=== PATIENT | male | born 1950 | race Caucasian/White ===

== ENCOUNTER 2023-08-04 13:48 | Emergency (ER) | payer MEDICARE, OTHER, SELFPAY ==
[2023-08-04 13:50] VITALS: BP 126/70
--- NOTE | 2023-08-04 14:38 | ED.GENMED ---
History of Present Illness
General
Chief Complaint: Musculo-Skeletal Complaint
Source: patient
Exam Limitations: none
Time Seen by Provider: 08/04/23 14:11
Travel History
Have you had any contact with someone who has COVID-19?: No
Do you have any symptoms of coronavirus? Fever > 100 degrees, chills, cough, shortness of breath, sore throat, loss of taste or smell, muscle aches, or headache?: No
History of Present Illness
History of Present Illness:
See MDM
Past History
Past History
ED Past Medical History: Asthma, CAD, HTN, NIDDM and Other (Diabetic neuropathy)
ED Past Surgical History: Cardiac
Social History
Tobacco: Non-smoker
Alcohol: None
Drug: None
Personal: Single
Living: alone
Employment: Retired
Family History
Family History: Other (Noncontributory)
Phy Exam
Physical Exam
Physical Exam:
See MDM
Course
Orders/Labs/Results
Orders:
Orders
08/04/23 13:52
Shoulder, Right, Trauma [CR Shoulder, Trauma - Right] Urgent
Comment:
Reason For Exam: fell and landed on right shoulder yesterday
08/04/23 14:37
Sling Right-Treatment ONCE
HYDROmorphone [Dilaudid] 1 mg IM NOW STA
Vital Signs
Initial and Last Documented VS:
Initial Vital Signs
Temp Pulse Resp BP Pulse Ox
98.0 F 94 16 126/70 96
08/04/23 13:50 08/04/23 13:50 08/04/23 13:50 08/04/23 13:50 08/04/23 13:50
Last Documented Vital Signs
Temp Pulse Resp BP Pulse Ox
98.0 F 94 16 126/70 96
08/04/23 13:50 08/04/23 13:50 08/04/23 13:50 08/04/23 13:50 08/04/23 13:50
MDM/Problems Addressed
Differential Diagnosis Includes:
HPI and MDM Narrative:
72-year-old male presenting with a trip and fall yesterday. Patient states he was using his walker and he tripped and fell on his right shoulder. He is right-hand dominant. He denies numbness or tingling
On exam, patient does not have any significant bony tenderness. He has tenderness with internal rotation and abduction. The extremity is otherwise neurovascularly intact past the concern for rotator cuff injury. Will place in sling discussed
importance of follow-up with orthopedics to discuss MRI. In regards to pain medicine, patient states he has oxycodone at home
Physical exam
General: Well appearing and non-toxic
HEENT: protecting airway
Neck: appears supple
CV: No evidence of cyanosis
Resp: No accessory muscle use
Abd: Non-distended
Extremities: No deformities. Pain with right shoulder internal rotation and abduction. Distal extremity neurovascular intact. No bony tenderness
Neuro: alert
Psych: Normal affect
Skin: Intact
Problems Addressed including Acute and Chronic Conditions affecting care:
1. Rotator cuff injury
Acuity: acute
Prognosis: stable
Details: X-ray negative for fracture. Patient placed in sling. Discussed orthopedic follow-up to discuss rotator cuff injury
Updates
Differential Diagnosis (but not limited to): Rotator cuff strain, shoulder fracture, rotator cuff tear
Testing considered: MRI but discussed this should be done as an outpatient
Drug therapy (if applicable): OTC meds, please see d/c instruction regarding Rx drugs
Amount and/or Complexity of Data Reviewed
Clinical info obtained from: Patient
External data reviewed: N/A
Labs I independently reviewed (but not limited to): N/A
Radiology: X-ray independently reviewed: No shoulder fracture noted
Pulse Ox: not hypoxic
EKG independently reviewed: N/A
Medical Authorization Specialist: N/A
Critical Care: N/A
Risk of Complication:
Social Determinants of health: Good social support
Discussed with other providers: N/A
Escalation of Care includes Admit/Obs: After being observed in the Emergency Department, pt stable for discharge.
Occasional wrong word or 'sound a like' substitutions may have occurred due to the inherent limitations of voice recognition software. Read the chart carefully and recognize, using context, where substitutions have occurred.
*Critical Care Note
Total Time (30-74mins, 75-104mins- exclusive of procedures): Not Applicable
ED Attending Note
-
Portions of this chart may have been created with voice recognition software.� Occasional wrong word or��sound alike� substitutions may have occurred due to the inherent limitations of voice recognition software.
Discharge Plan
Departure
Patient Disposition: Home (Routine Discharge)
Date of Disposition: 08/04/23
Time of Disposition: 14:38
Patient with high blood pressure during this ER visit?: No
Discharge Problem:
Rotator cuff injury
Instructions: Rotator Cuff Injury (DC)
Prescriptions:
No Action
metformin 500 MG tablet
500 mg PO TID
carvedilol 6.25 MG tablet
6.25 mg PO BID
torsemide 20 MG tablet
20 mg PO DAILY
pioglitazone 45 MG tablet
45 mg PO DAILY
omeprazole 40 MG capsule,delayed release(DR/EC)
40 mg PO DAILY
amitriptyline 25 MG tablet
25 mg PO HS
glimepiride 4 MG tablet
4 mg PO DAILY
losartan 25 MG tablet
25 mg PO DAILY
rosuvastatin 20 MG tablet
20 mg PO HS
gabapentin 300 mg capsule
300 mg PO TID
albuterol sulfate 90 mcg/actuation Hfa Aerosol Inhaler
1 inh INHALATION PRN PRN (Reason: SOB)
aspirin 325 mg Tablet
325 mg PO DAILY Qty: 1 0RF
Rx Instructions:
Pt normally on ASA 325 mg daily BID at home for CAD indication but such dosing not needed
Once done with 4 weeks of 325mg to go on Low dose ASA
docusate sodium 100 mg Capsule
100 mg PO BID Qty: 1 0RF
oxycodone 5 mg Tablet
5 mg PO Q4HPRN PRN (Reason: moderate pain) Qty: 12 0RF
acetaminophen 325 mg Tablet
650 mg PO Q4HPRN PRN (Reason: headache, temp >101F) Qty: 1 0RF
insulin glargine [Lantus Solostar U-100 Insulin] 300 UNITS/3 ML insulin pen
16 unit SC HS Qty: 0 0RF
Rx Instructions:
Dose increased on this admission
Referrals:
Carlos Wiggins MD [Active] -
Activity Restrictions/Additional Instructions:
As we discussed, the x-ray was negative for fractures. Given the pain with certain arm movements, I am concerned about a rotator cuff injury. Please call the orthopedist for first available appointment and please return for worsening symptoms.
Interventions
Interventions:
*ED COVID-19 Vaccine History Last Done: 08/04/23 13:50
[2023-08-04] MEDS: DILAUDID 1 MG IM (14:48)
== END 2023-08-04 14:55 | disposition home or self-care (01) ==
LOC: EMR 13:48
PROVIDERS: EMERGENCY PHYSICIAN Student in an Organized Health Care Education/Training Program; FAMILY PHYSICIAN Family Medicine
DX: S46.001A Unspecified injury of muscle(s) and tendon(s) of the rotator cuff of right shoulder, initial encounter (principal); W01.0XXA Fall on same level from slipping, tripping and stumbling without subsequent striking against object, initial encounter
CPT/HCPCS: 99284; 96372; 73030

== ENCOUNTER → 2023-11-01 06:43 | Outpatient (REF) | payer MEDICARE, OTHER, SELFPAY | LOC: MRI 06:43 | PROVIDERS: ATTENDING PHYSICIAN Specialist; FAMILY PHYSICIAN Family Medicine | DX: M75.41 Impingement syndrome of right shoulder (principal) | CPT/HCPCS: 73221 ==

== ENCOUNTER 2023-12-15 21:24 | Inpatient (IN) | payer MEDICARE, OTHER, SELFPAY ==
[2023-12-15 19:09] VITALS: BP 144/68
[2023-12-15 19:17] VITALS: BP 144/68
--- NOTE | 2023-12-15 19:17 | ED.MUSCINJ ---
HPI-Injury
<Dmitri Garcia DO - Last Filed: 12/15/23 22:10>
General
Chief Complaint: Musculo-Skeletal Complaint
Time Seen by Provider: 12/15/23 19:05
<DEEPA Rodriguez - Last Filed: 12/15/23 21:44>
General
Source: patient
Exam Limitations: none
History of Present Illness-Injury
Is this injury a work related problem?: No
Is pt an associate of [facility]?: No
Initial Injury comments:
This is a 73 year old male that comes in by ambulance with c/o fall. States that he just had right shoulder surgery yesterday by Dr. Wiggins. States that today he was walking down the neri with his walker and the Walker and him went down. States that
he did not hit his head or have any LOC. States that he has pain in the right lower leg. States that he is always SOB with walking and he has some dizziness. Denies any fever, chills, chest pain, abd pain, nausea, vomiting, diarrhea, headache,
urinary burning.
Past History
<DEEPA Rodriguez - Last Filed: 12/15/23 21:44>
Past History
ED Past Medical History: Asthma, CAD, CHF, HTN, Hypercholesterolemia, NIDDM, [place] and Other (Diabetic neuropathy, back and neck pain, Renal calculus)
ED Past Surgical History: Cardiac (CABG), Orthopedic (Right knee meniscus repair, Right ankle surgery, Right shoulder rotator cuff repair) and Other (Cataracts)
Social History
Tobacco: Non-smoker
Alcohol: None
Drug: None
Personal: Single
Living: alone
Employment: Retired
Family History
Family History: Other (Noncontributory)
Review of Systems
<DEEPA Rodriguez - Last Filed: 12/15/23 21:44>
Review of Systems
All Other Systems: ROS reviewed and negative except as documented in HPI and ROS
Constitutional: Reports no symptoms; Denies fever or chills
EENT: Reports no symptoms
Respiratory: Reports trouble breathing (Always with walking); Denies cough
Cardiac: Reports no symptoms; Denies chest pain
ABD/GI: Denies abdominal pain, nausea, vomiting or diarrhea
: Reports no symptoms; Denies dysuria, frequency or urgency
Musculoskeletal: Reports other (Right lower leg pain)
Skin: Reports no symptoms
Neurological: Reports dizzy (occasionally); Denies headache
Psychiatric: Reports no symptoms
Musculoskeletal Injury Exam
<DEEPA Rodriguez - Last Filed: 12/15/23 21:44>
Musculoskeletal Injury Exam
Right Lower Leg:
Pain with Movement?: Moderate
Tender to palpation?: Mild
Soft tissue swelling?: None
External deformity and angulation?: Moderate
Joint effusion?: None
Contusion?: None
Hematoma-local bleeding into tissue?: None
Strain- Sprain- Tear (Connective tissue injury)?: None
Crepitus with movement?: No
Joint instability?: No
Malalignment/deformity?: Yes
Range of motion: Limited
Distal skin color and temperature: normal-warm & good color
Capillary Refill: normal
Normal distal neurovascular exam?: Yes
Phy Exam
<DEEPA Rodriguez - Last Filed: 12/15/23 21:44>
General Physical Exam
General Presentation: no apparent distress
General age: appears stated age
General Skin: warm and dry
General Habitus: elderly
General Mental: alert
General Hydration: appears well hydrated
ENT Exam
ENT Exam: TM's normal, pharynx normal and neck supple
Eye Exam
Eye Exam: EOMI
Cardiovascular Exam
Cardiovascular Exam: regular rate/rhythm and normal peripheral pulses
Pulmonary Exam
Pulmonary Exam: lungs clear, no respiratory distress, no rales, chest non tender, no crackles, no rhonchi, no wheezing and no cough
Gastrointestinal Exam
Gastrointestinal Exam: normal bowel sounds, non tender, soft, no organomegaly, no pulsatile mass and non distended
Musculoskeletal Exam
Musculoskeletal Exam: no edema and other (Deformity right lower leg with external rotation)
Skin Exam
Skin Exam: normal color, warm/dry, no petechia and other (abrasion at the base of the naval)
Psychiatric Exam
Psychiatric Exam: normal mood/affect
Injury Course
Gialt;Dmitri Garcia, DO - Last Filed: 12/15/23 22:10>
Orders/Labs/Results
Orders:
Orders
12/15/23 19:16
Ankle, Right 3 view CR [CR Ankle - Right Min 3 Views *] Urgent
Comment:
Reason For Exam: Fall,
CR Leg Tibia/fibula Right 2 Vw Urgent
Comment:
Reason For Exam: Fall,
12/15/23 19:36
Complete Blood Count/With Diff Urgent
Comprehensive Metabolic Panel Urgent
12/15/23 20:36
HYDROmorphone [Dilaudid] 1 mg IV NOW STA
12/15/23 21:17
Admit/Transfer Patient As Directed
Co-Sign Provider:
Level of Care: Inpatient admission
Assign to:: Medical/Surgical
Physician / Group: carina
Diagnosis: tibida/fibula fracture
Reason for Hospitalization: tibida/fibula fracture
Expected length of stay greater than two midnights?: Yes
ELOS- Estimated Length of Stay in days: 2
I certify the patient meets the requirements for IP care: Yes
Code Status As Directed
Resuscitation Status: Full Code
12/15/23 22:00
Flush (0.9% Sodium Chloride) [Flush (Nss)] See Dose Instructions IV PER PROTOCOL
Abnormal Lab Results
12/15/23
19:36
RBC 3.74 L 10^6/uL
(4.70-6.10)
Hgb 11.6 L g/dL
(13.0-18.0)
Hct 34.2 L %
(39.0-52.0)
MPV 11.2 H fL
(7.4-10.4)
Abs Immat Gran (auto) 0.1 H 10^3/uL
(0-0.05)
Absolute Neuts (auto) 6.6 H 10^3/uL
(1.4-6.5)
Absolute Lymphs (auto) 1.1 L 10^3/uL
(1.2-3.4)
Absolute Monos (auto) 1.3 H 10^3/uL
(0.1-0.6)
Immature Gran % 1.1 H %
(0-0.5)
Lymphocytes % 12.4 L %
(20.5-51.1)
Monocytes % 13.8 H %
(1.7-9.3)
Glucose 248 H mg/dl
(70-99)
Total Protein 6.1 L g/dl
(6.3-8.2)
12/15/23 19:36
12/15/23 19:36
Gialt;DEEPA Rodriguez - Last Filed: 12/15/23 21:44>
Orders/Labs/Results
Orders:
Orders
12/15/23 19:16
Ankle, Right 3 view CR [CR Ankle - Right Min 3 Views *] Urgent
Comment:
Reason For Exam: Fall,
CR Leg Tibia/fibula Right 2 Vw Urgent
Comment:
Reason For Exam: Fall,
12/15/23 19:36
Complete Blood Count/With Diff Urgent
Comprehensive Metabolic Panel Urgent
12/15/23 20:36
HYDROmorphone [Dilaudid] 1 mg IV NOW STA
12/15/23 21:17
Admit/Transfer Patient As Directed
Co-Sign Provider:
Level of Care: Inpatient admission
Assign to:: Medical/Surgical
Physician / Group: carina
Diagnosis: tibida/fibula fracture
Reason for Hospitalization: tibida/fibula fracture
Expected length of stay greater than two midnights?: Yes
ELOS- Estimated Length of Stay in days: 2
I certify the patient meets the requirements for IP care: Yes
Code Status As Directed
Resuscitation Status: Full Code
12/15/23 22:00
Flush (0.9% Sodium Chloride) [Flush (Nss)] See Dose Instructions IV PER PROTOCOL
Abnormal Lab Results
12/15/23
19:36
RBC 3.74 L 10^6/uL
(4.70-6.10)
Hgb 11.6 L g/dL
(13.0-18.0)
Hct 34.2 L %
(39.0-52.0)
MPV 11.2 H fL
(7.4-10.4)
Abs Immat Gran (auto) 0.1 H 10^3/uL
(0-0.05)
Absolute Neuts (auto) 6.6 H 10^3/uL
(1.4-6.5)
Absolute Lymphs (auto) 1.1 L 10^3/uL
(1.2-3.4)
Absolute Monos (auto) 1.3 H 10^3/uL
(0.1-0.6)
Immature Gran % 1.1 H %
(0-0.5)
Lymphocytes % 12.4 L %
(20.5-51.1)
Monocytes % 13.8 H %
(1.7-9.3)
Glucose 248 H mg/dl
(70-99)
Total Protein 6.1 L g/dl
(6.3-8.2)
12/15/23 19:36
12/15/23 19:36
H/H slightly low Glucose nonfasting. Total protein slightly low.
Procedures
<Dmitri Garcia DO - Last Filed: 12/15/23 22:10>
Splinting/Sling Placement
Right Leg:
Procedure completed by: Dr. Garcia
Pre-splint extermity exam: neurovascular intact
Type of splint: sugar-tong and posterior long leg
Splint material: fiberglass
Normal distal neurovascular exam?: Yes
<DEEPA Rodrigeuz - Last Filed: 12/15/23 21:44>
MDM/Problems Addressed
Differential Diagnosis Includes:
Deformity with fracture right lower leg,
MDM/Problems Addressed:
This is a 73 year old male that comes in with c/o right leg injury. States that he was walking down the neri with his walker to get to the laundry room and he fell. Patient is c/o right leg deformity.
Will get labs and X-ray leg and ankle.
Back into see patient. Explained that he broke both the tib and fibula. There is also a proximal fibula fracture. Will place patient in a sterup and posterior splint. Message sent to Dr. Mccullough and Hospitalist. Will admit.
Right leg splinted with posterior and stirrup.
Chronic conditions affecting care: DM and CAD
Acute Exacerbation and/or Progression of Chronic Illness:
NA
<DEEPA Rodriguez - Last Filed: 12/15/23 21:44>
*Radiology
Radiology exam reviewed: preliminary read by ED provider (Tib/Fib- Fracture of the distal tib/fib and proximal fibula. ), radiology read reviewed (tib/Fib-There is an acute comminuted nondisplaced fracture proximal fibular metaphysis. There is an
acute comminuted transverse fracture of the distal tibial diaphysis associated with 15mm lateral displacement. there is an acute oblique facture of the distal fibular diaphysis associated with 8mm ), all reviewed NAD by ED Provider (Tib/Fib con-8mm
lateral and 13mm anterior displacement. Right ankle-There is an acute comminuted transverse fracture of the distal tibial diaphysis associated with 15mm lateral displacement. There is an acute oblique fracture of the distal fibular diaphysis
associated with 8mm lateral and 13mm ) and other (Ankle cont-13mm anterior displacaement. )
*EKG
Interpreted by ED Provider?: NA
Rate: EKG- N/A
*[employer] Interpretation
Rate: [employer]- N/A
*Critical Care Note
Total Time (30-74mins, 75-104mins- exclusive of procedures): Not Applicable
ED Attending Note
<Dmitri Garcia DO - Last Filed: 12/15/23 22:10>
ED Attending Note
Patient seen and examined by attending physician: Yes
I performed the substantive portion of visit, reviewed & personally made and approve the management plan that is documented in note by myself or VIBHA.: Yes
<DEEPA Rodriguez - Last Filed: 12/15/23 21:44>
-
Portions of this chart may have been created with voice recognition software.� Occasional wrong word or��sound alike� substitutions may have occurred due to the inherent limitations of voice recognition software.
Discharge Plan
Departure
Patient Disposition: Admit
Date of Disposition: 12/15/23
Time of Disposition: 20:36
Admit to: Med/Surg
Presentation/result/management discussed w/ accepting MD/DO: Hospitalist
Patient with high blood pressure during this ER visit?: Yes
Condition: Good
Covid-19: Not Applicable
Discharge Problem:
Fracture of tibia and fibula, shaft, Fracture of fibula, proximal
Interventions
Interventions:
*Risk Screen - Suicide Last Done: 12/15/23 19:40
*General Assessment Last Done: 12/15/23 19:40
*Neglect/Abuse Screening Last Done: 12/15/23 22:07
ED- Fall Risk Assessment Last Done: 12/15/23 22:07
*ED COVID-19 Vaccine History Last Done: 12/15/23 19:40
ED-Musculoskeletal Assessment Last Done: 12/15/23 19:40
[2023-12-15 19:18] VITALS: BMI 32.1
[2023-12-15 19:44] LABS: % Basophils 0.2 % (0-2); % Eosinophils 0.2 % (0-6); % Immature Granulocytes 1.1 % (0-0.5); % Lymphocytes 12.4 % (20.5-51.1); % Monocytes 13.8 % (1.7-9.3); % Neutrophils 72.3 % (42.2-75.2); Absolute Immature Granulocytes 0.1 10^3/uL (0-0.05); Absolute Lymphocytes 1.1 10^3/uL (1.2-3.4); Absolute Monocytes 1.3 10^3/uL (0.1-0.6); Absolute Neutrophils 6.6 10^3/uL (1.4-6.5); Hematocrit 34.2 % (39.0-52.0); Hemoglobin 11.6 g/dL (13.0-18.0); Mean Corp Hgb Conc. 33.9 g/dL (33.0-37.0); Mean Corpuscular Volume 91.4 fL (80.0-94.0); Mean Platelet Volume 11.2 fL (7.4-10.4); Nucleated Red Blood Cells % 0 % (-); Platelet Count 130 10^3/uL (130-400); Red Blood Cell Count 3.74 10^6/uL (4.70-6.10); Red Cell Dist. Width 13.4 % (11.5-14.5); White Blood Cell Count 9.1 10^3/uL (4.8-10.8)
[2023-12-15 20:06] LABS: ALT (SGPT) 18 U/L (0-50); AST (SGOT) 35 U/L (17-59); Alkaline Phosphatase 68 U/L (38-126); Blood Urea Nitrogen 19 mg/dl (9-20); Carbon Dioxide 26 mmol/L (22-30); Estimated Creatinine Clearance 69 ml/min; Glucose 248 mg/dl (70-99); Total Bilirubin 0.8 mg/dl (0.2-1.3); Total Protein 6.1 g/dl (6.3-8.2); eGFR > 60.00
[2023-12-15 20:14] LABS: Chloride 103 mmol/L (98-107); Potassium 4.1 mmol/L (3.5-5.1); Sodium 136 mmol/L (135-145)
[2023-12-15 21:00] VITALS: BP 152/72
[2023-12-15] MEDS: DILAUDID 1 MG IV (21:18)
--- NOTE | 2023-12-15 21:22 | HPS.HSE ---
Family Physician
-
Family Physician: Alma Scott MD
Chief Complaint
-
fall
History of Present Illness
73-year-old male past medical history of CAD status post CABG, CHF, diabetes, hypertension, hyperlipidemia, chronic opiate dependence, presenting with fall. Patient had right shoulder surgery yesterday by Dr. Wiggins. Today he was walking down the
[place] with his walker and he fell down. He did not hit his head or have any loss of consciousness. He states that he has pain in the right lower leg.
He states that he does frequently fall and sometimes he gets dizzy but today when he fell he did not get dizzy.
Denies fevers, chills, chest pain, abdominal pain, nausea vomiting, diarrhea, headache, urinary symptoms.
He denies smoking or alcohol use.
Medical History
Past Medical History
Past Medical History: Reports Other (CAD status post CABG, CHF, diabetes, hypertension, hyperlipidemia, chronic opiate dependence)
Past Surgical History: Reports Other (Cardiac (CABG), Orthopedic (Right knee meniscus repair, Right ankle surgery, Right shoulder rotator cuff repair) and Other (Cataracts))
Social History
Tobacco: Non-smoker
Alcohol: None
Drug: None
Family History
Family History: Not pertinent
Allergies / Home Medications
Allergies reflects when Allergies were last updated in [facility].
Home Medications with original date entered in [facility]
Allergy/Medication List:
Allergies
Allergy/AdvReac Type Severity Reaction Status Date / Time
simvastatin Allergy cried for Verified 12/15/23 19:39
a week
Home Medications
amitriptyline 25 mg tablet 25 mg PO HS Mental Health/Anxiety 02/15/19
glimepiride 4 mg tablet 4 mg PO DAILY Diabetes 02/15/19
losartan 25 mg tablet 25 mg PO DAILY Blood pressure 02/15/19
metformin 500 mg tablet 500 mg PO TID Diabetes 02/15/19
omeprazole 40 mg capsule,delayed release 40 mg PO DAILY Gastrointestinal issue 02/15/19
pioglitazone 45 mg tablet 45 mg PO DAILY Diabetes 02/15/19
rosuvastatin 20 mg tablet 20 mg PO HS High cholesterol 02/15/19
torsemide 20 mg tablet 20 mg PO DAILY Heart disease/condition 02/15/19
albuterol sulfate 90 mcg/actuation aerosol inhaler 1 puff inhalation R TIDPRN PRN SOB 01/06/23
aspirin 325 mg tablet 325 mg PO DAILY #1 tab 01/14/23
Unknown Vitamins/Supplements 1 dose PO DAILY 12/15/23
xebhkjv-dmmsbslxvktqj-zrlazuzu 250 mg-250 mg-65 mg tablet (Excedrin Extra Strength) 1 tab PO BID 12/15/23
carvedilol 3.125 mg tablet 3.125 mg PO Q12H 12/15/23
gabapentin 600 mg tablet 600 mg PO TID 12/15/23
insulin glargine 100 unit/mL (3 mL) subcutaneous pen (Lantus Solostar U-100 Insulin) 12 unit SC HS 12/15/23
oxycodone-acetaminophen 5 mg-325 mg tablet 0.5 tab PO Q4HPRN PRN severe pain 12/15/23
Review of Systems
-
History Source: Patient
A 12 point ROS was completed and negative except as noted: Yes
Constitutional: Reports No Symptoms
EENT: Reports No Symptoms
Respiratory: Reports No Symptoms
Cardiac: Reports No Symptoms
Abdomen/GI: Reports No Symptoms
: Reports No Symptoms
Musculoskeletal: Reports See HPI
Skin: Reports No Symptoms
Neurological: Reports No Symptoms
Endocrine: Reports No Symptoms
Hematologic/Lymphatic: Reports No Symptoms
Psych: Reports No Symptoms
Physical Exam
Vital Signs
Vital Signs
Temp Pulse Resp BP Pulse Ox
98.7 F 103 20 144/68 94
12/15/23 19:09 12/15/23 19:09 12/15/23 19:09 12/15/23 19:17 12/15/23 19:30
Physical Exam
General: Well Developed, Well Nourished and No Apparent Distress
HEENT: NormoCephalic, Moist mucous membranes and Atraumatic
Respiratory: Clear
Cardiac: S1/S2 and Regular Rhythm; No Murmur or Rub
GI: Soft, Non Tender, Non Distended and Normal Bowel Sounds; No Organomegaly
Rectal: Deferred by Provider
Musculoskeletal: No Clubbing, No Cyanosis and No Edema
Skin: No Rash
Neuro: Nonfocal/grossly intact
Laboratory Results
-
12/15/23 19:36
12/15/23 19:36
Laboratory Results
Total Bilirubin 0.8 mg/dl (0.2-1.3) 12/15/23 19:36
AST 35 U/L (17-59) 12/15/23 19:36
ALT 18 U/L (0-50) 12/15/23 19:36
Alkaline Phosphatase 68 U/L (38-126) 12/15/23 19:36
Data Reviewed
-
Lab Data: Labs Reviewed by me
Old Records: Reviewed
Impression/Plan
-
IMPRESSION:
PLAN:
# Fracture of distal tibia/fibula and proximal fibula
-Tylenol, Dilaudid for pain
-Ortho consulted
-Posterior splint to be placed
-N.p.o. past midnight for possible surgery tomorrow
# Right shoulder surgery yesterday
History of right ankle fracture status post ORIF in September
CAD status post CABG
-Continue aspirin
History of CHF
-Continue Coreg
-Continue torsemide
Chronic normocytic anemia
-Hemoglobin stable
Essential hypertension
-Continue losartan
Type 2 diabetes
-Continue Lantus 12 units
-Hold glimepiride, pioglitazone, metformin
-Insulin sliding scale
Diabetic neuropathy
-Continue gabapentin
Hyperlipidemia
-Continue statin
Chronic opioid dependence
Anxiety/depression
-Continue amitriptyline
Full code
DVT prophylaxis�none
N.p.o. past midnight
[2023-12-15] MEDS: FLUSH (NSS) 1 FLUSH IV (21:32)
--- NOTE | 2023-12-15 23:00 | PTCARENOTE ---
Received patient via stretcher accompanied by ED PCT. Patient transferred from stretcher to bed without difficulty. Nursing assessment completed and as documented. Patient s/p right shoulder surgery with dressing to shoulder and arm in sling.
Patient RLE with hard splint and PARAMJIT bandage, able to move toes and leg on command, decreased sensation but at baseline, warm to touch, +cap refill and +PP. Oriented to room/facility, instructed use of call sun and within reach, VSS, continue with
current care plan.
[2023-12-15 23:09] LABS: Glucose - Point of Care 313 mg/dl (70-99)
[2023-12-15] MEDS: ELAVIL 25 MG PO (23:21)
[2023-12-15] MEDS: NEURONTIN 600 MG PO (23:21)
[2023-12-15] MEDS: CRESTOR 20 MG PO (23:21)
[2023-12-15] MEDS: LANTUS 0.119999999999999996 UNITS SC (23:21)
[2023-12-15] MEDS: COREG 3.125 MG PO (23:21)
[2023-12-15 23:25] VITALS: BMI 31.5
[2023-12-15 23:36] VITALS: BMI 31.5
[2023-12-15 23:53] VITALS: BP 146/77
[2023-12-16] VITALS (11 sets, daily range): BP systolic 106–159; BP diastolic 52–75; BMI 31.6
[2023-12-16 02:27] LABS: Glucose - Point of Care 352 mg/dl (70-99)
[2023-12-16] MEDS: NOVOLOG FLEXPEN 5 UNITS SC (02:54)
[2023-12-16] MEDS: TYLENOL 650 MG PO ×2 (05:04→22:12)
[2023-12-16 05:09] LABS: Glucose - Point of Care 207 mg/dl (70-99)
[2023-12-16 07:22] LABS: % Basophils 0.2 % (0-2); % Eosinophils 0.1 % (0-6); % Immature Granulocytes 0.7 % (0-0.5); % Lymphocytes 15.7 % (20.5-51.1); % Monocytes 16.2 % (1.7-9.3); % Neutrophils 67.1 % (42.2-75.2); Absolute Immature Granulocytes 0.1 10^3/uL (0-0.05); Absolute Lymphocytes 1.4 10^3/uL (1.2-3.4); Absolute Monocytes 1.4 10^3/uL (0.1-0.6); Absolute Neutrophils 5.9 10^3/uL (1.4-6.5); Mean Corp Hgb Conc. 33.3 g/dL (33.0-37.0); Mean Corpuscular Hgb 30.6 pg (27.0-31.0); Mean Corpuscular Volume 91.9 fL (80.0-94.0); Mean Platelet Volume 11.6 fL (7.4-10.4); Nucleated Red Blood Cells % 0 % (-); Platelet Count 146 10^3/uL (130-400); Red Blood Cell Count 3.59 10^6/uL (4.70-6.10); Red Cell Dist. Width 13.2 % (11.5-14.5); White Blood Cell Count 8.8 10^3/uL (4.8-10.8)
[2023-12-16 07:36] LABS: Glucose - Point of Care 180 mg/dl (70-99)
[2023-12-16 07:41] LABS: ALT (SGPT) 17 U/L (0-50); AST (SGOT) 36 U/L (17-59); Albumin 3.8 g/dl (3.5-5.0); Alkaline Phosphatase 66 U/L (38-126); Blood Urea Nitrogen 16 mg/dl (9-20); Calcium 9.3 mg/dl (8.4-10.2); Carbon Dioxide 27 mmol/L (22-30); Chloride 102 mmol/L (98-107); Estimated Creatinine Clearance 75 ml/min; Glucose 191 mg/dl (70-99); Potassium 3.7 mmol/L (3.5-5.1); Sodium 137 mmol/L (135-145); Total Bilirubin 0.9 mg/dl (0.2-1.3); Total Protein 5.8 g/dl (6.3-8.2); eGFR > 60.00
[2023-12-16] MEDS: NOVOLOG FLEXPEN-LOW RESISTANCE SC ×2 (08:09→12:28)
--- NOTE | 2023-12-16 08:15 | W.PN.UPDATE ---
Update Note
Progress Note Update
73-year-old male with fall with spiral fracture of the right tibia and proximal fibula adjacent towards distal fixation for previous ankle fracture.
Imaging was shown and reviewed with the patient. Given the unstable nature of the fracture pattern, displacement, and his baseline health and ambulatory status recommended for operative intervention
Plan for OR today for right lower extremity hardware removal, fracture reduction and intramedullary nail fixation with Dr. Mccullough
N.p.o. Antibiotics on-call to the OR. Consent obtained and placed in the chart
Order placed for tall cam boot to begin to the patient prior to surgery and bring to the operating room for placement immediately postop
Full H&P to follow
[2023-12-16] MEDS: DEMADEX PO (08:27)
[2023-12-16] MEDS: COZAAR 25 MG PO (08:32)
[2023-12-16] MEDS: PROTONIX 40 MG PO (08:32)
[2023-12-16] MEDS: COREG 3.125 MG PO ×2 (08:32→20:32)
[2023-12-16] MEDS: DILAUDID 0.5 MG IV (08:32)
[2023-12-16] MEDS: NEURONTIN 600 MG PO ×2 (08:32→22:06)
[2023-12-16 10:07] LABS: Glycohemoglobin (HgbA1c) 7.4 % (4.0-5.6)
--- NOTE | 2023-12-16 10:46 | W.PN.HOSP.TC ---
Today's Communication/Plan
-
Monitor vital signs and see plan
Pain control
Plan for the OR today
Hold full dose aspirin currently, restart postop when ok with orthopedics
PT/OT post OP per ortho
Assessment / Plan
Assessment / Plan
General: Well Developed, Well Nourished and No Apparent Distress
HEENT: NormoCephalic, Moist mucous membranes and Atraumatic
Respiratory: Clear
Cardiac: S1/S2 and Regular Rhythm; No Murmur or Rub
GI: Soft, Non Tender, Non Distended and Normal Bowel Sounds; No Organomegaly
Musculoskeletal: No Clubbing, No Cyanosis and No Edema
Neuro: Nonfocal/grossly intact
Fracture of distal tibia/fibula and proximal fibula
-Tylenol, Dilaudid for pain
-Ortho following; given unstable nature of the fracture pattern, displacement orthopedics is going to take patient to the OR 12/15 for right lower extremity hardware removal, fracture reduction and intramedullary nail fixation. post OP PT/OT per ortho
-Posterior splint to be placed
-N.p.o. past midnight for possible surgery tomorrow
EKG with sinus tach
#Recent Right shoulder surgery 12/13
History of right ankle fracture status post ORIF in September
CAD status post CABG about 13 years ago
-Continue aspirin; should ideally be on 81mg but patient has been taking full dose. Hold aspirin for now since need to go to the OR today
History of CHF
-Continue Coreg
-Continue torsemide
Chronic normocytic anemia
-Hemoglobin stable
Essential hypertension
-Continue losartan
Type 2 diabetes
A1c 7.4
-Continue Lantus 12 units
-Hold glimepiride, pioglitazone, metformin
-Insulin sliding scale
Diabetic neuropathy
-Continue gabapentin
Hyperlipidemia
-Continue statin
Chronic opioid dependence
Anxiety/depression
-Continue amitriptyline
Full code
DVT prophylaxis�none; post OP can be on ASA 325 which he takes at home
I spent a total of 52 minutes with the patient or on the floor. More than 50% of this time involved counseling and coordination of care.
Anticipated Discharge: 24 - 48 hours
Subjective/Interval History
-
Date of Service: December 16, 2023
has pain
Objective Data
-
Labs:
Laboratory Results
12/16/23
06:43
WBC 8.8
Hgb 11.0 L
Hct 33.0 L
Plt Count 146
Sodium 137
Potassium 3.7
Chloride 102
Carbon Dioxide 27
BUN 16
Creatinine 1.1
Glucose 191 H
Calcium 9.3
Total Bilirubin 0.9
AST 36
ALT 17
Alkaline Phosphatase 66
Vital Signs:
Vital Signs
Temp Pulse Resp BP Pulse Ox
97.9 F 106 16 114/83 92
12/16/23 07:40 12/16/23 07:40 12/16/23 07:40 12/16/23 08:32 12/16/23 07:40
I&O
12/15/23 12/16/23 12/17/23
06:59 06:59 06:59
Intake Total 420 / 420
Output Total 575 / 575
Balance -155 / -155
[2023-12-16 12:13] LABS: Glucose - Point of Care 172 mg/dl (70-99)
--- NOTE | 2023-12-16 13:16 | CM ---
Reviewed the chart notes and spoke with the patient at the bedside. The patient had shoulder surgery yesterday and fell injuring his right ankle. Patient anticipates going to OR today for surgical repair.
The patient resides alone in a second floor condo with 14 steps to enter. The patient has a rolling walker and shower grab bars. The patient has had [facility] in the past and been to [facility] and [facility]. Patient understand he will need SNF at
discharge. Patient requests referral be sent to [facility]. Referral to be sent once PT/OT evaluates after surgery. The [facility] CM continues to be available to patient/family and
is monitoring medical plan for needs at discharge.
Plan: Discharge to SNF once bed available. Referral to be sent to [facility] once evaluated by PT/OT. Referral started with [facility].
[2023-12-16] MEDS: NEURONTIN PO (15:31)
--- NOTE | 2023-12-16 16:37 | CON.ORTHO ---
Addendum entered and electronically signed by Roland Mccullough MD 12/16/23 21:17:
At bedside and agree with above note. 73-year-old male with history of right distal fibula fracture and syndesmotic injury treated with ORIF last year presented after a fall with periprosthetic tib-fib fracture. He is neurovascular intact
distally. Injury happened 1 day ago. I discussed the injury with the patient and discussed the surgical plan Dr. Maxwell. Shared decision was to proceed with open reduction and internal fixation of the right tibia given the comminution and degree
of displacement.
> 75 minutes was spent reviewing the clinical information, evaluating the patient, and formulating clinical plan.
Agustin Mccullough MD
Original Note:
Consultation
-
Date/Time Consultation Requested: 12/15/2023 2141
Date/Time Consultation Performed: 12/16/2023 45
Requesting Provider: Dr. Susie Muñoz
Performing Provider: TERRI Abernathy, Dr. Rayray Mccullough
Reason for Consultation: Right tibia/fibula fracture
Consultation - Orthopedics
History
73-year-old male with significant past medical history of type 2 diabetes presenting to [place] emergency room and subsequent admission after a fall and subsequent pain in the right lower extremity. He does have significant relative surgery of
the previous right ankle ORIF with Dr. Carvajal approximately 1 year ago with revision surgery [address] Maxwell for hardware failure. He also underwent arthroscopic surgery with Dr. Wiggins yesterday.
Allergies / Home Medications
Past medical history: Coronary artery disease status post CABG, congestive heart failure, type 2 diabetes, hypertension, hyperlipidemia, history of chronic opioids
Past surgical history: Cardiac CABG, right ankle ORIF and revision ankle ORIF October 2022 Dr. Maxwell/Dr. Carvajal
Arthroscopic right shoulder rotator cuff repair with Dr. Wiggins, cataracts
Medications: See list
Allergies: See list
Social history: No tobacco use, denies alcohol consumption, no illicit drug use. Community ambulator with occasional assist device at baseline
Family history: Noncontributory
12 point ROS: Negative other than described in history of present illness
Allergy/AdvReac Type Severity Reaction Status Date / Time
simvastatin Allergy cried for Verified 12/15/23 19:39
a week
�Medication �Instructions �Recorded
amitriptyline 25 mg tablet 25 mg PO HS Mental Health/Anxiety 02/15/19
glimepiride 4 mg tablet 4 mg PO DAILY Diabetes 02/15/19
losartan 25 mg tablet 25 mg PO DAILY Blood pressure 02/15/19
metformin 500 mg tablet 500 mg PO TID Diabetes 02/15/19
omeprazole 40 mg capsule,delayed 40 mg PO DAILY Gastrointestinal 02/15/19
release issue
pioglitazone 45 mg tablet 45 mg PO DAILY Diabetes 02/15/19
rosuvastatin 20 mg tablet 20 mg PO HS High cholesterol 02/15/19
torsemide 20 mg tablet 20 mg PO DAILY Heart 02/15/19
disease/condition
albuterol sulfate 90 mcg/actuation 1 puff inhalation R TIDPRN PRN SOB 01/06/23
aerosol inhaler
aspirin 325 mg tablet 325 mg PO DAILY #1 tab 01/14/23
Unknown Vitamins/Supplements 1 dose PO DAILY Supplement 12/15/23
xzmymwm-dgdllpbtldjlb-lruqeuoj 250 1 tab PO BID HEADACHE 12/15/23
mg-250 mg-65 mg tablet (Excedrin
Extra Strength)
carvedilol 3.125 mg tablet 3.125 mg PO Q12H Blood Pressure 12/15/23
gabapentin 600 mg tablet 600 mg PO TID Neurological 12/15/23
Condition
insulin glargine 100 unit/mL (3 12 unit SC HS Diabetes 12/15/23
mL) subcutaneous pen (Lantus
Solostar U-100 Insulin)
oxycodone-acetaminophen 5 mg-325 0.5 tab PO Q4HPRN PRN severe pain 12/15/23
mg tablet
Vital Signs / Lab Results
Temp Pulse Resp BP Pulse Ox
97.9 F 106 16 114/83 92
12/16/23 07:40 12/16/23 07:40 12/16/23 07:40 12/16/23 08:32 12/16/23 11:33
Focused examination of the right lower extremity shows intact splint. He demonstrates motor intact to the first toe with flexion and extension. Baseline level of neuropathy with exposed toe. He is nontender in the proximal thigh and no pain with
logroll testing.
Imaging: X-rays taken of the right tibia and fibula show a minimally displaced fracture of the proximal fibula at the neck. There is a comminuted fracture relative to his hardware in the diaphyseal region of his tibia. Acute fracture of the distal
fibular diaphysis. Intact hardware
12/16/23 06:43
12/16/23 06:43
Assessment / Plan
73-year-old male with a mechanical fall with relative PSHx of right shoulder arthroscopic surgery [address] Wiggins and previous ankle ORIF and revision surgery for failure of hardware [address] Maxwell/Dr. Carvajal with new injury
of a comminuted and displaced fracture of the tibia and fibula adjacent towards his hardware.
Imaging was shown and reviewed with the patient. With his current fracture pattern patient is recommended for operative invention. The condition/injury and respective operative and non-operative interventions were reviewed with the patient to
include the risks, benefits, rehabilitation, and prognosis for each. The treatment/operative technique, follow-up, rehabilitation, and prognosis were reviewed with the patient. Surgical risks were discussed which include but not limited to
infection, blood loss, CRPS, possible need for further surgeries, damage to local structures, and possible loss of life or limb. After thorough counseling and answering all questions, the patient wished to proceed with operative intervention of
right lower extremity removal of hardware and intramedullary nail fixation with Dr. Mccullough. The patient verified understanding of the treatment plan and all questions were answered to satisfaction.
Plan [address] Mccullough for removal of hardware and intramedullary nail fixation.
N.p.o.
Antibiotics on-call to the OR
Consent obtained and placed in the chart
[2023-12-16 19:01] LABS: Glucose - Point of Care 217 mg/dl (70-99)
[2023-12-16] MEDS: NORMOSOL-R 1000 IV (19:16)
[2023-12-16] MEDS: NOVOLOG vial 1 UNITS SC (19:21)
[2023-12-16] MEDS: DILAUDID 0.25 MG IV (19:45)
--- NOTE | 2023-12-16 20:20 | PTCARENOTE ---
Pt. arriving from PACU around 2019, surgical wounds assessed with offgoing PACU nurse at bedside. Pt. A&Ox3, drowsy but arousable to verbal stimuli, even and unlabored breathing on RA, in NAD, VSS, and denies pain at present. Pt. oriented to room,
call sun within reach, bed locked and in lowest position, side rails in place. Pt. set up to eat dinner at this time.
[2023-12-16 20:23] LABS: Glucose - Point of Care 246 mg/dl (70-99)
[2023-12-16] MEDS: COLACE 100 MG PO (20:32)
[2023-12-16] MEDS: NOVOLOG FLEXPEN-LOW RESISTANCE 2 UNITS SC (20:33)
--- NOTE | 2023-12-16 21:15 | OR.RPT ---
Operative Report
Operative Report
Orthopedic Surgery Operative Note
Date of Operation: 12/16/2023
Preoperative Diagnosis: Right displaced tibia shaft fracture; history of right distal fibula ORIF and syndesmosis ORIF
Postoperative Diagnosis: Same
Operation Performed: Right tibia shaft fracture open reduction and internal fixation with intramedullary nail; removal of hardware
Surgeon: Roland Mccullough MD
Assistants: Santo Maddox PA-C who helped with retraction and positioning
Anesthesia: General
Complications: None
Estimated Blood Loss: 100mL
Implants:
[place] T2 tibial nail, 360mm x 10mm
5.0mm proximal and distal interlocking screws
Tourniquet Time: NA
Indications for Procedure:
73M who presented to the ED with right calf pain status post fall. Xrays showed a displaced tibia shaft fracture and proximal fibula fracture. He had history of right distal fibula fracture ORIF with Dr. Maxwell for syndesmotic injury. We reviewed
the natural history of the problem and discussed the risks, benefits and alternatives of surgical and nonoperative treatment options. Shared decision was to proceed with surgical treatment. The patient understood the risks including, but not limited
to, bleeding, infection, failure to relieve pain, more pain than preop, damage to blood vessels and nerves, need for reoperation, mechanical failure of the implants, wound healing problems, stiffness, instability, blood clot, pulmonary embolism,
myocardial infarction, pneumonia, arrhythmia, CVA and . The patient accepted these risks and wished to proceed with surgery. All questions were answered and informed consent was obtained.
Procedure in General:
The patient was identified in the preoperative holding area. The right limb was identified as the operative site and marked for safety. The patient was brought to the operating room and transferred to the operative table. General anesthesia was
performed. Ancef was administered prior to incision. All bony prominences were well padded. A bump was placed under the ipsilateral hip. The operative limb was prepped and draped in the usual sterile fashion.
The prior distal fibula incision was identified. Fluroscopy was used to identify the proximal syndesmotic screws. The skin was incised down to bone in full thickness fashion. Care was made not to injure the SPN. The two proximal interlocking screws
were identified and removed easily.
The proximal knee was assessed, and the incision was marked 2 fingerbreadths above the superior aspect of the patella about 4 cm in length. The skin was incised and dissection was carried down to the quadriceps tendon. This was split in line with
its fibers. The intra-articular elastic guide was inserted into the joint with care to subluxate the patella medially or laterally to avoid iatrogenic injury. A guidepin was used to find the starting point on the medial aspect of the lateral
tibial eminence in line with the lateral cortex as well as the anterior cortex. Fluoroscopy was used to ensure no intra-articular penetration or disruption of the tibial tubercle. Guidewire was advanced and the opening reamer was used over the
wire. Attention was turned to the fracture. With a combination of traction and manipulation, the fracture was anatomically reduced. Two of the proximal fibula plate screws were removed as these were blocking reduction. With the fracture reduced,
ball-tipped guidewire was passed to the center of the distal tibia. The tibia was sequentially reamed up to a 11mm which had good cortical chatter. A 10mm diameter nail with 360 mm length was selected. This was assembled the back table and passed
down the diaphysis. Once in place, proximal interlocking screws were placed medial to lateral through the jig. Distal interlocking screws were placed medial to lateral using perfect minto technique. Final fluoroscopy shots confirmed anatomic
reduction and appropriate screw length and hardware position.
The wound was irrigated copiously with 3L saline. The deep tissue was closed with 0 vicryl about the knee. Skin was closed with running 2-0 vicryl and 3-0 nylon. The interlocking screw sites were closed with 2-0 vicryl and 3-0 nylon in mattress
fashion. Sterile dressings were applied.
The patient awoke from anesthesia without any difficulties. The sponge and instrument counts were correct at the end of the case. I was present and participated in the entire procedure.
Post Operative Plan:
- Pain control
- PT/OT
- DVT prophylaxis: ASA 325mg daily x4 weeks
- WB Status: TTWB RLE in CAM boot
- Neurovascular checks x24 hours
- Strict elevation
- The patient will follow up in 3 weeks for a xray check and wound check
Agustin Mccullough MD
[2023-12-16 22:06] LABS: Glucose - Point of Care 262 mg/dl (70-99)
[2023-12-16] MEDS: ELAVIL 25 MG PO (22:06)
[2023-12-16] MEDS: CRESTOR 20 MG PO (22:06)
[2023-12-16] MEDS: LANTUS 0.119999999999999996 UNITS SC (22:06)
[2023-12-16] MEDS: ROXICODONE 10 MG PO (22:12)
[2023-12-16] MEDS: BENADRYL 25 MG PO (23:13)
[2023-12-16] MEDS: ANCEF 5 IV (23:13)
--- NOTE | 2023-12-16 23:57 | PTCARENOTE ---
Pt. c/o itchiness around tegaderm of new surgical site to R knee and does admit to sensitive skin. Repeated scratching has caused tegaderm edges to start to peel, threatening the integrity of the dressing. House ANODIZER contacted and PO Benadryl given as
ordered. Pt. states itchiness has resolved at time of writing, dressing intact.
[2023-12-17 03:23] VITALS: BP 118/73
[2023-12-17] MEDS: NORMOSOL-R 1000 IV (04:28)
[2023-12-17] MEDS: ROXICODONE 10 MG PO ×4 (04:34→21:01)
[2023-12-17 06:00] VITALS: BMI 31.3
[2023-12-17 07:30] VITALS: BP 153/72
[2023-12-17 07:36] LABS: Glucose - Point of Care 236 mg/dl (70-99)
[2023-12-17 07:53] LABS: % Basophils 0.1 % (0-2); % Immature Granulocytes 0.6 % (0-0.5); % Lymphocytes 8.8 % (20.5-51.1); % Neutrophils 80.5 % (42.2-75.2); Absolute Immature Granulocytes 0.1 10^3/uL (0-0.05); Absolute Lymphocytes 0.8 10^3/uL (1.2-3.4); Absolute Monocytes 0.9 10^3/uL (0.1-0.6); Absolute Neutrophils 7.2 10^3/uL (1.4-6.5); Mean Corp Hgb Conc. 32.6 g/dL (33.0-37.0); Mean Corpuscular Hgb 31.2 pg (27.0-31.0); Mean Corpuscular Volume 95.7 fL (80.0-94.0); Mean Platelet Volume 11.4 fL (7.4-10.4); Nucleated Red Blood Cells % 0 % (-); Platelet Count 110 10^3/uL (130-400); Red Blood Cell Count 2.82 10^6/uL (4.70-6.10); Red Cell Dist. Width 13.2 % (11.5-14.5); White Blood Cell Count 8.9 10^3/uL (4.8-10.8)
[2023-12-17 07:55] LABS: Blood Urea Nitrogen 17 mg/dl (9-20); Calcium 7.5 mg/dl (8.4-10.2); Carbon Dioxide 25 mmol/L (22-30); Chloride 100 mmol/L (98-107); Estimated Creatinine Clearance 103 ml/min; Glucose 194 mg/dl (70-99); Potassium 4.7 mmol/L (3.5-5.1); Sodium 134 mmol/L (135-145); eGFR > 60.00
[2023-12-17 08:00] LABS: Hemoglobin 8.8 g/dL (13.0-18.0)
--- NOTE | 2023-12-17 08:26 | PTCARENOTE ---
TT to Dr. Mariscal regarding drop in Hg 111 to 8.8. pt on Norm R 80ml/hr. doctor wishes to monitor as VSS. 153/72 (94) 97%
[2023-12-17] MEDS: NOVOLOG FLEXPEN-LOW RESISTANCE 2 UNITS SC (08:32)
[2023-12-17] MEDS: ANCEF 5 IV (08:33)
[2023-12-17] MEDS: NEURONTIN 600 MG PO ×3 (08:34→20:52)
[2023-12-17] MEDS: COZAAR 25 MG PO (08:34)
[2023-12-17] MEDS: COLACE 100 MG PO ×2 (08:34→20:52)
[2023-12-17] MEDS: ASPIRIN 325 MG PO (08:35)
[2023-12-17] MEDS: COREG 3.125 MG PO ×2 (08:35→20:52)
[2023-12-17] MEDS: PROTONIX 40 MG PO (08:36)
[2023-12-17] MEDS: DEMADEX 20 MG PO (08:36)
[2023-12-17 10:44] VITALS: BP 115/61; BP 125/61; PULSE 102
--- NOTE | 2023-12-17 11:10 | W.PN.HOSP.TC ---
Today's Communication/Plan
-
Monitor vital signs and see plan
Pain control
Monitor hemoglobin
PT/OT
Assessment / Plan
Assessment / Plan
General: Well Developed, Well Nourished and No Apparent Distress
HEENT: NormoCephalic, Moist mucous membranes and Atraumatic
Respiratory: Clear
Cardiac: S1/S2 and Regular Rhythm; No Murmur or Rub
GI: Soft, Non Tender, Non Distended and Normal Bowel Sounds; No Organomegaly
Musculoskeletal: Right foot boot,splint
Neuro: Nonfocal/grossly intact
Fracture of distal tibia/fibula and proximal fibula
-Tylenol, Dilaudid for pain
-Ortho following; given unstable nature of the fracture pattern, displacement orthopedics is going to take patient to the OR 12/15 for right lower extremity hardware removal, fracture reduction and intramedullary nail fixation. PT/OT
EKG with sinus tach
Acute on chronic anemia, anemia likely secondary to hemodilution and acute blood loss anemia given fracture and surgery
Continue to monitor hemoglobin
DC further IVF
#Recent Right shoulder surgery 12/13
History of right ankle fracture status post ORIF in September
CAD status post CABG about 13 years ago
cw ASA
History of CHF
-Continue Coreg
-Continue torsemide
Thrombocytopenia
monitor
Mild hyponatremia
Monitor
Essential hypertension
-Continue losartan
Type 2 diabetes
A1c 7.4
-Continue Lantus 12 units
-Hold pioglitazone, metformin
Restart glimepiride
-Insulin sliding scale
Diabetic neuropathy
-Continue gabapentin
Hyperlipidemia
-Continue statin
Chronic opioid dependence
Anxiety/depression
-Continue amitriptyline
Full code
DVT prophylaxis�ASA
I spent a total of 51 minutes with the patient or on the floor. More than 50% of this time involved counseling and coordination of care.
Anticipated Discharge: 24 - 48 hours
Subjective/Interval History
-
Date of Service: December 17, 2023
Denies nausea
Objective Data
-
Labs:
Laboratory Results
12/17/23
07:14
WBC 8.9
Hgb 8.8 L
Hct 27.0 L
Plt Count 110 L D
Sodium 134 L
Potassium 4.7 D
Chloride 100
Carbon Dioxide 25
BUN 17
Creatinine 0.8
Glucose 194 H
Calcium 7.5 L D
Vital Signs:
Vital Signs
Temp Pulse Resp BP Pulse Ox
97.4 F 94 18 153/72 97
12/17/23 07:30 12/17/23 07:30 12/17/23 07:30 12/17/23 08:34 12/17/23 09:18
I&O
12/16/23 12/17/23 12/18/23
06:59 06:59 06:59
Intake Total 420 / 420 2820 / 2820
Output Total 575 / 575 2079 / 2079
Balance -155 / -155 740 / 740
[2023-12-17 11:20] VITALS: BP 112/72
--- NOTE | 2023-12-17 11:35 | W.PN.ORTHO ---
Today's Communication / Plan
-
Appreciate the primary team, continue Tx
Disposition per CM
TTWB RLE in boot, on walker. sling RUE
PT/OT
Ice/elevation
Dressings to remain RLE/RUE
ASA 325mg daily x 4 weeks for DVT ppx
Follow-up Ortho outpatient 3 weeks for xrays/suture removal/wound check
Assessment
.
Distal Motor Intact: Yes
Dressing:
Clean, dry and intact. Dressings and boot in place RLE
Assessment:
POD#1 IM nail right tibia
Overall doing well
DNVI RLE/RUE
Plan
.
Surgery / Date: Right tibial IM nail/December 18 ([facility])
DVT Prophylaxis: Aspirin
Activity:
Out of bed. Strict NWB RLE. Boot to remain. Sling RUE
PT/OT
Discharge Information:
Per CM
Subjective
.
.:
Patient resting comfortably this AM. No pain RLE. RUE in sling from recent RCR
Vital Signs and Labs
.
Vital Signs and Labs:
Lab Results
12/17/23 07:14
Temp Pulse Resp BP Pulse Ox
97.6 F 94 16 112/72 93
12/17/23 11:20 12/17/23 11:20 12/17/23 11:20 12/17/23 11:20 12/17/23 11:20
[2023-12-17 12:04] LABS: Glucose - Point of Care 345 mg/dl (70-99)
[2023-12-17] MEDS: NOVOLOG FLEXPEN-LOW RESISTANCE 4 UNITS SC ×2 (12:11→17:27)
[2023-12-17] MEDS: AMARYL 4 MG PO (12:23)
[2023-12-17 15:40] VITALS: BP 122/66
--- NOTE | 2023-12-17 16:55 | CM ---
Addendum entered by Daiana Brower 12/18/23 08:34:
faxed physical therapy notes to [facility] for [facility] term snf.
Original Note:
met with patient at bedside.he is pod#1 im nailing right tibia,nwb right le in boot,rue in sling,boot to remain.seen by [facility] rec skilled rehab vs acute rehab.i have sent referral to [facility] in case he qualifies for acute rehab but mobility is very
limited.plan snf vs acute rehab.
[2023-12-17 17:07] LABS: Glucose - Point of Care 325 mg/dl (70-99)
--- NOTE | 2023-12-17 17:38 | PTCARENOTE ---
1530: placing pt back into bed with slid pivot, used sheet around waste to lift/support. Redirection needed. When in bed performing NV checks, noted drainage in boot, removed. Lower dressing saturated with blood, middle dressing more serous, lateral
appears CDI, below knee is lifting. TT with Dr. Mccullough if ok to change and what he would like. xeroform/adaptic 4x4, ABD, then PARAMJIT wrap. When 2 lower dressings removed open and closed blisters present, notified Dr. Mccullough. All wound sites cleaned
and prepared as above, except one directly below knee, covered with tegaderm. Ok to keep Cam boot off in bed but needed OOB/ambulation.
[2023-12-17 20:42] LABS: Hematocrit 27.9 % (39.0-52.0); Hemoglobin 9.6 g/dL (13.0-18.0)
[2023-12-17] MEDS: ELAVIL 25 MG PO (20:52)
[2023-12-17] MEDS: CRESTOR 20 MG PO (20:53)
[2023-12-17] MEDS: LANTUS 0.119999999999999996 UNITS SC (21:06)
[2023-12-17 21:08] LABS: Glucose - Point of Care 342 mg/dl (70-99)
[2023-12-17] MEDS: NOVOLOG FLEXPEN 4 UNITS SC ×2 (21:34→23:54)
[2023-12-17 23:00] VITALS: BP 147/69
[2023-12-17 23:14] LABS: Glucose - Point of Care 363 mg/dl (70-99)
[2023-12-18 07:05] VITALS: BP 138/68
[2023-12-18 07:05] LABS: Glucose - Point of Care 357 mg/dl (70-99)
[2023-12-18 07:52] LABS: % Basophils 0.2 % (0-2); % Lymphocytes 16.5 % (20.5-51.1); % Monocytes 11.2 % (1.7-9.3); % Neutrophils 71.1 % (42.2-75.2); Absolute Immature Granulocytes 0.1 10^3/uL (0-0.05); Absolute Lymphocytes 1.6 10^3/uL (1.2-3.4); Absolute Monocytes 1.1 10^3/uL (0.1-0.6); Absolute Neutrophils 6.7 10^3/uL (1.4-6.5); Hematocrit 28.5 % (39.0-52.0); Hemoglobin 9.5 g/dL (13.0-18.0); Mean Corp Hgb Conc. 33.3 g/dL (33.0-37.0); Mean Corpuscular Hgb 30.8 pg (27.0-31.0); Mean Corpuscular Volume 92.5 fL (80.0-94.0); Mean Platelet Volume 11.3 fL (7.4-10.4); Nucleated Red Blood Cells % 0 % (-); Platelet Count 171 10^3/uL (130-400); Red Blood Cell Count 3.08 10^6/uL (4.70-6.10); Red Cell Dist. Width 13.4 % (11.5-14.5); White Blood Cell Count 9.4 10^3/uL (4.8-10.8)
[2023-12-18 08:09] LABS: Blood Urea Nitrogen 29 mg/dl (9-20); Calcium 8.6 mg/dl (8.4-10.2); Carbon Dioxide 28 mmol/L (22-30); Chloride 100 mmol/L (98-107); Estimated Creatinine Clearance 63 ml/min; Glucose 325 mg/dl (70-99); Potassium 4.4 mmol/L (3.5-5.1); Sodium 134 mmol/L (135-145); eGFR 57.29
[2023-12-18] MEDS: ASPIRIN 325 MG PO (08:15)
[2023-12-18] MEDS: NEURONTIN 600 MG PO ×3 (08:15→22:44)
[2023-12-18] MEDS: COZAAR 25 MG PO (08:16)
[2023-12-18] MEDS: PROTONIX 40 MG PO (08:16)
[2023-12-18] MEDS: COLACE 100 MG PO ×2 (08:17→20:04)
[2023-12-18] MEDS: ROXICODONE 10 MG PO ×3 (08:18→22:44)
[2023-12-18] MEDS: AMARYL 4 MG PO (08:18)
[2023-12-18] MEDS: DEMADEX 20 MG PO (08:18)
[2023-12-18] MEDS: COREG 3.125 MG PO ×2 (08:18→20:06)
[2023-12-18] MEDS: NOVOLOG FLEXPEN-LOW RESISTANCE 5 UNITS SC ×3 (08:20→18:06)
[2023-12-18] MEDS: MIRALAX 17 GRAMS PO (08:44)
--- NOTE | 2023-12-18 10:58 | W.PN.HOSP.TC ---
Today's Communication/Plan
-
monitor vitals
see plan
monitor hgb
dc planning; acute vs SNF per PT; CM aware
Assessment / Plan
Assessment / Plan
General: Well Developed, Well Nourished and No Apparent Distress
HEENT: NormoCephalic, Moist mucous membranes and Atraumatic
Respiratory: Clear
Cardiac: S1/S2 and Regular Rhythm; No Murmur or Rub
GI: Soft, Non Tender, Non Distended and Normal Bowel Sounds; No Organomegaly
Musculoskeletal: Right foot boot,splint
Neuro: Nonfocal/grossly intact
Fracture of distal tibia/fibula and proximal fibula
-Tylenol, Dilaudid for pain
-Ortho following; given unstable nature of the fracture pattern, displacement; s/p OR 12/15 for right lower extremity hardware removal, fracture reduction and intramedullary nail fixation. PT/OT rec acute vs SNF
EKG with sinus tach
TTWB RLE in boot, on walker. sling RUE
PT/OT
Ice/elevation
Dressings to remain RLE/RUE
ASA 325mg daily x 4 weeks for DVT ppx
Acute on chronic anemia, anemia likely secondary to hemodilution and acute blood loss anemia given fracture and surgery
Continue to monitor hemoglobin
DC further IVF
#Recent Right shoulder surgery 12/13
History of right ankle fracture status post ORIF in September
CAD status post CABG about 13 years ago
cw ASA
History of CHF
-Continue Coreg
-Continue torsemide
Constipation
Laxatives
Thrombocytopenia
monitor
Mild hyponatremia
Monitor
Essential hypertension
-Continue losartan
Type 2 diabetes
A1c 7.4
-increase lantus; add mealtime insulin
-Hold pioglitazone, metformin
cw glimepiride
-Insulin sliding scale
Diabetic neuropathy
-Continue gabapentin
Hyperlipidemia
-Continue statin
Chronic opioid dependence
Anxiety/depression
-Continue amitriptyline
Full code
DVT prophylaxis�ASA
I spent a total of 52 minutes with the patient or on the floor. More than 50% of this time involved counseling and coordination of care.
Anticipated Discharge: 24 - 48 hours
Subjective/Interval History
-
Date of Service: December 18, 2023
Does have pain
Objective Data
-
Labs:
Laboratory Results
12/18/23
07:05
WBC 9.4
Hgb 9.5 L
Hct 28.5 L
Plt Count 171 D
Sodium 134 L
Potassium 4.4
Chloride 100
Carbon Dioxide 28
BUN 29 H
Creatinine 1.3
Glucose 325 H
Calcium 8.6
Vital Signs:
Vital Signs
Temp Pulse Resp BP Pulse Ox
97.3 F 99 18 138/68 98
12/18/23 07:05 12/18/23 07:05 12/18/23 07:05 12/18/23 08:16 12/18/23 08:34
I&O
12/17/23 12/18/23 12/19/23
06:59 06:59 06:59
Intake Total 2820 / 2820 1520 / 1520
Output Total 2079 / 2079 2099 / 2099
Balance 740 / 740 -580 / -580
--- NOTE | 2023-12-18 11:05 | W.PN.ORTHO ---
Today's Communication / Plan
-
Appreciate the primary team, continue Tx
Disposition per , SNF probably would be of most benefit
TTWB RLE in boot, on walker. sling RUE
PT/OT
Ice/elevation
Dressings to remain RLE/RUE
ASA 325mg daily x 4 weeks for DVT ppx
Follow-up Ortho outpatient 3 weeks for xrays/suture removal/wound check
Ortho to sign off for now, please reengage with any pertinent questions
Assessment
.
Distal Motor Intact: Yes
Dressing:
Clean, dry and intact. Dressings/carla wrap in place RLE
Assessment:
POD#2 Right Tibial IM nail
Overall doing/feeling well
Calf soft, nontender
Plan
.
Surgery / Date: Right tibial IM nail/December 18 ([facility])
DVT Prophylaxis: Aspirin
Activity:
Out of bed. TTWB RLE on walker. Boot to remain with OOB. May remove to elevate and ice in bed
PT/OT
Discharge Plan: SNF
Subjective
.
.:
Patient resting comfortably. Feeling well this AM. Little to no pain in RLE
Vital Signs and Labs
.
Vital Signs and Labs:
Lab Results
12/18/23 07:05
12/18/23 07:05
Temp Pulse Resp BP Pulse Ox
97.3 F 99 18 138/68 98
12/18/23 07:05 12/18/23 07:05 12/18/23 07:05 12/18/23 08:16 12/18/23 08:34
[2023-12-18] MEDS: DILAUDID 0.5 MG IV (11:15)
[2023-12-18 12:29] LABS: Glucose - Point of Care 381 mg/dl (70-99)
[2023-12-18 12:36] VITALS: BP 125/56; PULSE 90; O2SAT 94
[2023-12-18] MEDS: NOVOLOG FLEXPEN 5 UNITS SC ×2 (13:09→18:04)
[2023-12-18 15:40] VITALS: BP 125/61
[2023-12-18 16:42] LABS: Glucose - Point of Care 407 mg/dl (70-99)
[2023-12-18 17:31] LABS: Glucose 368 mg/dl (70-99)
--- NOTE | 2023-12-18 18:33 | PTCARENOTE ---
pt BS HI on glucometer, lab draw [phone]. Notified Dr. Mariscal. Did discuss increased BS with him in AM already added 5u NovoLog standing. pt is snacking, snacks removed. sign placed that family/friends not to feed. doctor also upgraded SS to moderate.
used sliding board and gait belt to get pt back into bed. with redirection this system worked much better. pt still very weak and immediately tries to place wt on NWB limbs.
[2023-12-18 21:09] LABS: Glucose - Point of Care 385 mg/dl (70-99)
[2023-12-18] MEDS: CRESTOR 20 MG PO (22:44)
[2023-12-18] MEDS: ELAVIL 25 MG PO (22:45)
[2023-12-18] MEDS: LANTUS 0.149999999999999994 UNITS SC (22:45)
[2023-12-18 23:20] VITALS: BP 150/64
--- NOTE | 2023-12-19 00:53 | PTCARENOTE ---
RN noticed pt had a dark looking scab on his right 2nd toe and also one on his left 5th toe. Pt stated he uses a dremel tool to trim his toenails and it is possible he slipped and hit his skin. This RN put in for a wound consult because pt has
neuropathy and is diabetic and there is concern for necrotic tissue. Wound consult is placed and WHEEL WORKER was notified as well.
[2023-12-19 06:55] LABS: % Basophils 0.3 % (0-2); % Eosinophils 1.4 % (0-6); % Immature Granulocytes 1.4 % (0-0.5); % Lymphocytes 30.3 % (20.5-51.1); % Monocytes 13.1 % (1.7-9.3); % Neutrophils 53.5 % (42.2-75.2); Absolute Eosinophils 0.1 10^3/uL (0-0.7); Absolute Immature Granulocytes 0.1 10^3/uL (0-0.05); Absolute Monocytes 0.9 10^3/uL (0.1-0.6); Absolute Neutrophils 3.5 10^3/uL (1.4-6.5); Hematocrit 27.5 % (39.0-52.0); Hemoglobin 9.2 g/dL (13.0-18.0); Mean Corp Hgb Conc. 33.5 g/dL (33.0-37.0); Mean Corpuscular Hgb 30.9 pg (27.0-31.0); Mean Corpuscular Volume 92.3 fL (80.0-94.0); Mean Platelet Volume 11.2 fL (7.4-10.4); Nucleated Red Blood Cells % 0 % (-); Platelet Count 158 10^3/uL (130-400); Red Blood Cell Count 2.98 10^6/uL (4.70-6.10); Red Cell Dist. Width 13.2 % (11.5-14.5); White Blood Cell Count 6.6 10^3/uL (4.8-10.8)
[2023-12-19 07:13] LABS: Blood Urea Nitrogen 30 mg/dl (9-20); Carbon Dioxide 29 mmol/L (22-30); Chloride 98 mmol/L (98-107); Estimated Creatinine Clearance 68 ml/min; Glucose 300 mg/dl (70-99); Potassium 4.2 mmol/L (3.5-5.1); Sodium 135 mmol/L (135-145); eGFR > 60.00
[2023-12-19 07:29] VITALS: BP 161/74
[2023-12-19 07:31] LABS: Glucose - Point of Care 324 mg/dl (70-99)
[2023-12-19] MEDS: NOVOLOG FLEXPEN 5 UNITS SC ×3 (08:38→18:41)
[2023-12-19] MEDS: PROTONIX 40 MG PO (08:40)
[2023-12-19] MEDS: NOVOLOG FLEXPEN-MODERATE RESISTANCE 7 UNITS SC (08:40)
[2023-12-19] MEDS: DEMADEX 20 MG PO (08:41)
[2023-12-19] MEDS: COLACE 100 MG PO ×2 (08:41→21:11)
[2023-12-19] MEDS: NEURONTIN 600 MG PO ×3 (08:41→21:11)
[2023-12-19] MEDS: AMARYL 4 MG PO (08:41)
[2023-12-19] MEDS: GLUCOPHAGE 500 MG PO ×3 (08:41→22:45)
[2023-12-19] MEDS: MIRALAX 17 GRAMS PO (08:42)
[2023-12-19] MEDS: COREG 3.125 MG PO ×2 (08:42→21:10)
[2023-12-19] MEDS: ASPIRIN 325 MG PO (08:42)
[2023-12-19] MEDS: COZAAR 25 MG PO (08:42)
[2023-12-19] MEDS: ACTOS 45 MG PO (08:42)
[2023-12-19 10:00] VITALS: BMI 31.5
[2023-12-19 11:35] LABS: Glucose - Point of Care 261 mg/dl (70-99)
--- NOTE | 2023-12-19 11:57 | W.PN.HOSP.TC ---
Today's Communication/Plan
-
resume oral diabetic regimen,continue basal/bolus. monitor sugars
await Rib xrays
pain control
DC to SNF when sugars more controlled
Assessment / Plan
Assessment / Plan
Assessment:
Fracture of distal tibia/fibula and proximal fibula
-Tylenol, Dilaudid for pain
-Ortho following; given unstable nature of the fracture pattern, displacement; s/p OR 12/15 for right lower extremity hardware removal, fracture reduction and intramedullary nail fixation. PT/OT rec acute vs SNF
- EKG with sinus tach
- TTWB RLE in boot, on walker. sling RUE
- PT/OT rec acute vs SNF
- Ice/elevation
- Dressings to remain RLE/RUE
- ASA 325mg daily x 4 weeks for DVT ppx
- Outpatient ortho follow up
Fall last evening onto R ribs
- await Rib xrays
- pain control
Acute on chronic anemia, anemia likely secondary to hemodilution and acute blood loss anemia given fracture and surgery
- hemoglobin relatively stable; continue to monitor
Recent Right shoulder surgery 12/13
- continue Sling
- Outpatient ortho follow up
History of right ankle fracture status post ORIF in September
CAD status post CABG about 13 years ago
- continue ASA
History of CHF
- Continue Coreg
- Continue torsemide
Constipation
- on Laxatives
Thrombocytopenia
- monitor
Mild hyponatremia
- monitor
Essential hypertension
- continue losartan
Type 2 diabetes, uncontrolled
A1c 7.4
- increase Lantus; add mealtime insulin
- continue Glimepiride
- resume back pioglitazone, metformin
- Insulin sliding scale
- diet: patient admits to eating outside foods, probably higher carb content. D/w with him to eat only hospital food
Diabetic neuropathy
- continue gabapentin
Hyperlipidemia
- continue statin
Chronic opioid dependence
Anxiety/depression
- continue amitriptyline
DVT ppx: ASA per Ortho
Code: Full
Anticipated Discharge: 24 - 48 hours
Subjective/Interval History
-
Date of Service: December 19, 2023
reports fall into R sided ribs/chest yesterday, Xray pending
reports mild pain there. no SOB
does admit to eating more carbs through friends and sodas etc, encouraged him to eat only hospital food
Objective Data
-
Labs:
Laboratory Results
12/19/23
05:39
WBC 6.6
Hgb 9.2 L
Hct 27.5 L
Plt Count 158
Sodium 135
Potassium 4.2
Chloride 98
Carbon Dioxide 29
BUN 30 H
Creatinine 1.2
Glucose 300 H
Calcium 9.0
Vital Signs:
Vital Signs
Temp Pulse Resp BP Pulse Ox
98.7 F 99 16 161/74 96
12/19/23 07:29 12/19/23 07:29 12/19/23 07:29 12/19/23 07:29 12/19/23 07:29
I&O
12/18/23 12/19/23 12/20/23
06:59 06:59 06:59
Intake Total 1520 / 1520 1880 / 1880
Output Total 2100 / 2100 4095 / 4095
Balance -580 / -580 -2215 / -2215
Physical Exam
-
General: No Apparent Distress
HEENT: Normocephalic and Atraumatic
Respiratory: Negative Wheezes
Cardiac: Regular Rhythm and S1/S2
GI: Soft
Genito-urinary: No Costovertebral Tender
Musculoskeletal: Other (RUE sling and RLE surgical dressing)
Neuro: AO x 3
Psych: Calm
Data Reviewed
-
Total Time Spent with Patient (in minutes): 42
Labs: Labs Reviewed by me
[2023-12-19] MEDS: NOVOLOG FLEXPEN-MODERATE RESISTANCE 5 UNITS SC ×2 (12:24→18:41)
--- NOTE | 2023-12-19 12:40 | WOUNDNOTE ---
[facility] RN NOTE: Reviewed chart and met with patient. Patient describes doing his own nail care at home. He has a scabbed area on right second toe and Betadine was applied. Left 5th toe nail intact. Recommended to patient that he see Monitoring Coordinator for nail
care. Patient requested DPM in his area. Dr. Ha contact information added to discharge orders. Air cushion added to chair, sacrum intact. Will follow as needed.
[2023-12-19 14:23] VITALS: BP 139/68; PULSE 99; O2SAT 95
[2023-12-19 14:26] VITALS: BP 139/68; PULSE 101; O2SAT 96
[2023-12-19 15:20] VITALS: BP 131/51
[2023-12-19 17:19] LABS: Glucose - Point of Care 276 mg/dl (70-99)
[2023-12-19] MEDS: ROXICODONE 10 MG PO ×2 (18:45→22:45)
[2023-12-19] MEDS: ELAVIL 25 MG PO (21:11)
[2023-12-19] MEDS: CRESTOR 20 MG PO (21:11)
[2023-12-19 22:07] LABS: Glucose - Point of Care 269 mg/dl (70-99)
[2023-12-19] MEDS: LANTUS 0.149999999999999994 UNITS SC (22:44)
[2023-12-19 23:25] VITALS: BP 147/73
[2023-12-20 07:38] LABS: Hematocrit 28.7 % (39.0-52.0); Hemoglobin 9.5 g/dL (13.0-18.0); Mean Corp Hgb Conc. 33.1 g/dL (33.0-37.0); Mean Corpuscular Hgb 30.7 pg (27.0-31.0); Mean Corpuscular Volume 92.9 fL (80.0-94.0); Mean Platelet Volume 10.8 fL (7.4-10.4); Platelet Count 183 10^3/uL (130-400); Red Blood Cell Count 3.09 10^6/uL (4.70-6.10); Red Cell Dist. Width 13.1 % (11.5-14.5); White Blood Cell Count 6.9 10^3/uL (4.8-10.8)
[2023-12-20 07:48] VITALS: BP 105/67
[2023-12-20 07:50] LABS: Glucose - Point of Care 261 mg/dl (70-99)
[2023-12-20 08:04] LABS: Blood Urea Nitrogen 28 mg/dl (9-20); Calcium 9.1 mg/dl (8.4-10.2); Carbon Dioxide 31 mmol/L (22-30); Chloride 97 mmol/L (98-107); Estimated Creatinine Clearance 75 ml/min; Glucose 210 mg/dl (70-99); Potassium 4.1 mmol/L (3.5-5.1); Sodium 134 mmol/L (135-145); eGFR > 60.00
[2023-12-20] MEDS: NOVOLOG FLEXPEN 8 UNITS SC ×3 (08:58→17:56)
[2023-12-20] MEDS: NOVOLOG FLEXPEN-MODERATE RESISTANCE 5 UNITS SC (08:59)
[2023-12-20] MEDS: NEURONTIN 600 MG PO ×3 (09:00→21:45)
[2023-12-20] MEDS: ACTOS 45 MG PO (09:01)
[2023-12-20] MEDS: ASPIRIN 325 MG PO (09:01)
[2023-12-20] MEDS: MIRALAX 17 GRAMS PO (09:01)
[2023-12-20] MEDS: COLACE 100 MG PO ×2 (09:01→20:48)
[2023-12-20] MEDS: PROTONIX 40 MG PO (09:01)
[2023-12-20] MEDS: COZAAR 25 MG PO (09:02)
[2023-12-20] MEDS: COREG 3.125 MG PO ×2 (09:02→20:42)
[2023-12-20] MEDS: AMARYL 4 MG PO (09:02)
[2023-12-20] MEDS: GLUCOPHAGE 500 MG PO ×3 (09:03→21:45)
[2023-12-20] MEDS: DEMADEX 20 MG PO (09:03)
[2023-12-20] MEDS: ROXICODONE 10 MG PO ×2 (09:05→13:18)
--- NOTE | 2023-12-20 11:08 | W.PN.HOSP.TC ---
Today's Communication/Plan
-
increase Lantus; increase mealtime insulin
continue Glimepiride/Metformin/Pioglitazone
Assessment / Plan
Assessment / Plan
Assessment:
Fracture of distal tibia/fibula and proximal fibula
-Tylenol, Dilaudid for pain
-Ortho following; given unstable nature of the fracture pattern, displacement; s/p OR 12/15 for right lower extremity hardware removal, fracture reduction and intramedullary nail fixation. PT/OT rec acute vs SNF
- EKG with sinus tach
- TTWB RLE in boot, on walker. sling RUE
- PT/OT rec acute vs SNF
- Ice/elevation
- Dressings to remain RLE/RUE
- ASA 325mg daily x 4 weeks for DVT ppx
- Outpatient ortho follow up
Fall last evening onto R ribs
- Rib xrays negative
- pain control
atelectasis - continue IS
Acute on chronic anemia, anemia likely secondary to hemodilution and acute blood loss anemia given fracture and surgery
- hemoglobin relatively stable; continue to monitor
Recent Right shoulder surgery 12/13
- continue Sling
- Outpatient ortho follow up
History of right ankle fracture status post ORIF in September
CAD status post CABG about 13 years ago
- continue ASA
History of CHF
- Continue Coreg
- Continue torsemide
Constipation
- on Laxatives
Thrombocytopenia
- monitor
Mild hyponatremia
- monitor
Essential hypertension
- continue losartan
Type 2 diabetes, uncontrolled
A1c 7.4
- increase Lantus; increase mealtime insulin
- continue Glimepiride/Metformin/Pioglitazone
- Insulin sliding scale
- diet: patient admits to eating outside foods, probably higher carb content. D/w with him to eat only hospital food
Diabetic neuropathy
- continue gabapentin
Hyperlipidemia
- continue statin
Chronic opioid dependence
Anxiety/depression
- continue amitriptyline
DVT ppx: ASA per Ortho
Code: Full
Anticipated Discharge: Within 24 hours
Subjective/Interval History
-
Date of Service: December 20, 2023
pain controlled
sugars a bit better controlled with resuming oral meds and limiting carbs but remain >250
Objective Data
-
Labs:
Laboratory Results
12/20/23
05:57
WBC 6.9
Hgb 9.5 L
Hct 28.7 L
Plt Count 183
Sodium 134 L
Potassium 4.1
Chloride 97 L
Carbon Dioxide 31 H
BUN 28 H
Creatinine 1.1
Glucose 210 H
Calcium 9.1
Vital Signs:
Vital Signs
Temp Pulse Resp BP Pulse Ox
98.4 F 95 17 105/67 94
12/20/23 07:48 12/20/23 07:48 12/20/23 07:48 12/20/23 07:48 12/20/23 07:48
I&O
12/19/23 12/20/23 12/21/23
06:59 06:59 06:59
Intake Total 1880 / 1880 1200 / 1200
Output Total 4095 / 4095 2110 / 2110
Balance -2215 / -2215 -910 / -910
Physical Exam
-
General: No Apparent Distress
HEENT: Normocephalic and Atraumatic
Respiratory: Negative Wheezes
Cardiac: Regular Rhythm and S1/S2
GI: Soft
Genito-urinary: No Costovertebral Tender
Musculoskeletal: Other (RUE sling and RLE surgical dressing)
Neuro: AO x 3
Psych: Calm
Data Reviewed
-
Total Time Spent with Patient (in minutes): 42
Labs: Labs Reviewed by me
[2023-12-20 11:30] VITALS: BP 165/78; PULSE 95
[2023-12-20 11:35] VITALS: BP 165/78; PULSE 92; O2SAT 93
[2023-12-20 13:20] LABS: Glucose - Point of Care 217 mg/dl (70-99)
[2023-12-20] MEDS: NOVOLOG FLEXPEN-MODERATE RESISTANCE 3 UNITS SC ×2 (13:21→17:57)
--- NOTE | 2023-12-20 14:40 | CM ---
Reviewed the chart notes. Updated referral sent to [facility]. CM continues to be available to patient/family and is monitoring medical plan for needs at discharge.
Plan: Discharge to SNF when medically stable. No precert required.
[2023-12-20 15:20] VITALS: BP 125/56
[2023-12-20 15:21] LABS: Glucose - Point of Care 258 mg/dl (70-99)
[2023-12-20 17:51] LABS: Glucose - Point of Care 234 mg/dl (70-99)
[2023-12-20 21:40] LABS: Glucose - Point of Care 244 mg/dl (70-99)
[2023-12-20] MEDS: CRESTOR 20 MG PO (21:45)
[2023-12-20] MEDS: ELAVIL 25 MG PO (21:45)
[2023-12-20] MEDS: LANTUS 0.179999999999999993 UNITS SC (21:45)
[2023-12-20 23:53] VITALS: BP 154/72
[2023-12-21 05:41] LABS: Hematocrit 29.2 % (39.0-52.0); Hemoglobin 9.7 g/dL (13.0-18.0); Mean Corp Hgb Conc. 33.2 g/dL (33.0-37.0); Mean Corpuscular Hgb 30.4 pg (27.0-31.0); Mean Corpuscular Volume 91.5 fL (80.0-94.0); Mean Platelet Volume 10.6 fL (7.4-10.4); Platelet Count 213 10^3/uL (130-400); Red Blood Cell Count 3.19 10^6/uL (4.70-6.10); Red Cell Dist. Width 12.8 % (11.5-14.5)
[2023-12-21 06:06] LABS: Blood Urea Nitrogen 32 mg/dl (9-20); Carbon Dioxide 29 mmol/L (22-30); Chloride 97 mmol/L (98-107); Estimated Creatinine Clearance 69 ml/min; Glucose 204 mg/dl (70-99); Potassium 4.5 mmol/L (3.5-5.1); Sodium 132 mmol/L (135-145); eGFR > 60.00
[2023-12-21 07:30] VITALS: BP 136/65
--- NOTE | 2023-12-21 07:40 | W.PN.UPDATE ---
Update Note
Progress Note Update
Mr. Rendon is s/p right tibial IM nail performed by Dr. Mccullough on 12/16/2023. He is resting comfortably in bed this morning, and reports his pain is well controlled at present.
Directed exam of the right lower extremity reveals surgical dressings/splint clean, dry and intact. Calf soft and nontender. Patient able to wiggle toes. Sensation intact to light touch distally. Capillary refill <2 seconds.
Directed exam of the right upper extremity reveals surgical dressing clean, dry and intact. Patient able to wiggle fingers, flex and extend wrist. Sensation intact to light touch. Capillary refill <2 seconds.
Appreciate the primary team. All post-operative patient questions were answered.
Disposition per , SNF probably would be of most benefit.
TTWB RLE in boot, on walker. Sling RUE. NWB RUE.
PT/OT.
Ice/elevation.
Dressings to remain RLE/RUE.
ASA 325mg daily x 4 weeks for DVT ppx.
Follow-up Ortho outpatient 3 weeks for xrays/suture removal/wound check.
Ortho to sign off for now, please reengage with any pertinent questions.
--- NOTE | 2023-12-21 08:45 | CM ---
Addendum entered by Angelika Donaldson RN 12/21/23 15:52:
CM to contact admissions liaison at [facility] in morning to inquire of possible bed availability.
Original Note:
IMM signed and placed on chart.
[2023-12-21] MEDS: GLUCOPHAGE 500 MG PO ×3 (08:59→21:52)
[2023-12-21] MEDS: PROTONIX 40 MG PO (08:59)
[2023-12-21] MEDS: ACTOS 45 MG PO (08:59)
[2023-12-21] MEDS: AMARYL 4 MG PO (08:59)
[2023-12-21] MEDS: NEURONTIN 600 MG PO ×3 (08:59→21:52)
[2023-12-21] MEDS: DEMADEX 20 MG PO (08:59)
[2023-12-21] MEDS: COZAAR 25 MG PO (08:59)
[2023-12-21] MEDS: ASPIRIN 325 MG PO (08:59)
[2023-12-21] MEDS: COREG 3.125 MG PO ×2 (08:59→20:34)
[2023-12-21] MEDS: ROXICODONE 10 MG PO (08:59)
[2023-12-21 09:00] LABS: Glucose - Point of Care 243 mg/dl (70-99)
[2023-12-21] MEDS: MIRALAX 17 GRAMS PO (09:00)
[2023-12-21] MEDS: COLACE 100 MG PO ×2 (09:00→20:34)
[2023-12-21] MEDS: DULCOLAX 10 MG RECTAL (09:00)
[2023-12-21] MEDS: NOVOLOG FLEXPEN-MODERATE RESISTANCE 3 UNITS SC ×3 (09:04→17:39)
[2023-12-21] MEDS: NOVOLOG FLEXPEN 8 UNITS SC ×3 (09:05→17:40)
[2023-12-21 09:55] VITALS: BP 143/72; PULSE 97; O2SAT 97
[2023-12-21 09:57] VITALS: BP 143/72; PULSE 98; O2SAT 96
[2023-12-21] MEDS: CITROMA 300 ML PO (10:18)
--- NOTE | 2023-12-21 11:07 | W.PN.HOSP.TC ---
Addendum entered and electronically signed by Miguel Ángel Mariscal MD 12/21/23 11:10:
General: No Apparent Distress
HEENT: Normocephalic and Atraumatic
Respiratory: Negative Wheezes
Cardiac: Regular Rhythm and S1/S2
GI: Soft
Genito-urinary: No Costovertebral Tender
Musculoskeletal: Other (RUE sling and RLE surgical dressing)
Neuro: AO x 3
Psych: Calm
Original Note:
Today's Communication/Plan
-
Monitor vital signs and see plan
Continue with insulin
Mag citrate today for constipation
PT/OT
Pain control
Discharge planning
Assessment / Plan
Assessment / Plan
Assessment:
Fracture of distal tibia/fibula and proximal fibula
-Tylenol, Dilaudid for pain
-Ortho following; given unstable nature of the fracture pattern, displacement; s/p OR 12/15 for right lower extremity hardware removal, fracture reduction and intramedullary nail fixation. PT/OT rec acute vs SNF
- EKG with sinus tach
- TTWB RLE in boot, on walker. sling RUE
- PT/OT rec acute vs SNF
- Ice/elevation
- Dressings to remain RLE/RUE
- ASA 325mg daily x 4 weeks for DVT ppx
- Outpatient ortho follow up
Fall last evening onto R ribs
- Rib xrays negative
- pain control
atelectasis - continue IS
Acute on chronic anemia, anemia likely secondary to hemodilution and acute blood loss anemia given fracture and surgery
- hemoglobin relatively stable; continue to monitor
Recent Right shoulder surgery 12/13
- continue Sling
- Outpatient ortho follow up
History of right ankle fracture status post ORIF in September
CAD status post CABG about 13 years ago
- continue ASA
History of CHF
- Continue Coreg
- Continue torsemide
Constipation
- on Laxatives
add mag citrate
Thrombocytopenia
- monitor
Mild hyponatremia
- monitor
Essential hypertension
- continue losartan
Type 2 diabetes, uncontrolled
A1c 7.4
- increase Lantus; increase mealtime insulin
- continue Glimepiride/Metformin/Pioglitazone
- Insulin sliding scale
- diet: patient admits to eating outside foods, probably higher carb content. D/w with him to eat only hospital food
Diabetic neuropathy
- continue gabapentin
Hyperlipidemia
- continue statin
Chronic opioid dependence
Anxiety/depression
- continue amitriptyline
DVT ppx: ASA per Ortho
Code: Full
Anticipated Discharge: Within 24 hours
Subjective/Interval History
-
Date of Service: December 21, 2023
does have some pain
Objective Data
-
Labs:
Laboratory Results
12/21/23
05:27
WBC 8.0
Hgb 9.7 L
Hct 29.2 L
Plt Count 213
Sodium 132 L
Potassium 4.5
Chloride 97 L
Carbon Dioxide 29
BUN 32 H
Creatinine 1.2
Glucose 204 H
Calcium 9.0
Vital Signs:
Vital Signs
Temp Pulse Resp BP Pulse Ox
98.3 F 91 18 136/65 96
12/21/23 07:30 12/21/23 07:30 12/21/23 07:30 12/21/23 07:30 12/21/23 07:30
I&O
12/20/23 12/21/23 12/22/23
06:59 06:59 06:59
Intake Total 1200 / 1200 2520 / 2520
Output Total 2110 / 2110 1695 / 1695
Balance -910 / -910 825 / 825
[2023-12-21 12:11] LABS: Glucose - Point of Care 235 mg/dl (70-99)
--- NOTE | 2023-12-21 14:02 | PN.CDI ---
CDI
- -
CDI:
Physician Documentation Request
Admit Date: 12/15/23 21:24
Dear Doctor Davey,
Patient admitted for Fracture of distal tibia/fibula and proximal fibula
Progress notes state 'hx of CHF - continue Coreg, Continue Torsemide'
Last echo found at was 07/07/2015 with a reported EF of 50%
Please provide further specificity regarding the most likely type of CHF you are treating/monitoring.
Type
Systolic
Diastolic
Combined Systolic/Diastolic
Other
Use of terms such as suspected, likely, concern for, or probable (associated with a specific diagnosis that is being evaluated, monitored, or treated as if it exists) are acceptable and can be coded in the inpatient setting, when documented at the
time of discharge.
Thank you,
Melony Garcia RN BSN
CDI Specialist
tiger text
Please use your independent medical judgment in providing your response.
[2023-12-21 15:50] VITALS: BP 120/57
[2023-12-21 17:26] LABS: Glucose - Point of Care 200 mg/dl (70-99)
[2023-12-21 21:30] LABS: Glucose - Point of Care 237 mg/dl (70-99)
[2023-12-21] MEDS: CRESTOR 20 MG PO (21:52)
[2023-12-21] MEDS: LANTUS 0.179999999999999993 UNITS SC (21:53)
[2023-12-21] MEDS: ELAVIL 25 MG PO (21:53)
[2023-12-21 23:05] VITALS: BP 132/61
[2023-12-22 05:44] LABS: % Basophils 0.2 % (0-2); % Eosinophils 2.7 % (0-6); % Immature Granulocytes 2.2 % (0-0.5); % Lymphocytes 22.6 % (20.5-51.1); % Monocytes 12.1 % (1.7-9.3); % Neutrophils 60.2 % (42.2-75.2); Absolute Eosinophils 0.3 10^3/uL (0-0.7); Absolute Immature Granulocytes 0.2 10^3/uL (0-0.05); Absolute Lymphocytes 2.1 10^3/uL (1.2-3.4); Absolute Monocytes 1.1 10^3/uL (0.1-0.6); Absolute Neutrophils 5.5 10^3/uL (1.4-6.5); Hematocrit 30.2 % (39.0-52.0); Hemoglobin 9.8 g/dL (13.0-18.0); Mean Corp Hgb Conc. 32.5 g/dL (33.0-37.0); Mean Corpuscular Hgb 30.1 pg (27.0-31.0); Mean Corpuscular Volume 92.6 fL (80.0-94.0); Mean Platelet Volume 10.4 fL (7.4-10.4); Nucleated Red Blood Cells % 0 % (-); Platelet Count 216 10^3/uL (130-400); Red Blood Cell Count 3.26 10^6/uL (4.70-6.10); White Blood Cell Count 9.2 10^3/uL (4.8-10.8)
[2023-12-22 06:03] LABS: Blood Urea Nitrogen 37 mg/dl (9-20); Calcium 9.5 mg/dl (8.4-10.2); Carbon Dioxide 25 mmol/L (22-30); Chloride 99 mmol/L (98-107); Estimated Creatinine Clearance 59 ml/min; Glucose 126 mg/dl (70-99); Potassium 3.9 mmol/L (3.5-5.1); Sodium 135 mmol/L (135-145); eGFR 52.41
[2023-12-22] MEDS: ROXICODONE 10 MG PO ×3 (06:05→20:43)
[2023-12-22 07:30] VITALS: BP 141/68
[2023-12-22 07:56] LABS: Glucose - Point of Care 151 mg/dl (70-99)
[2023-12-22] MEDS: NOVOLOG FLEXPEN 8 UNITS SC ×3 (09:07→18:31)
[2023-12-22] MEDS: AMARYL 4 MG PO (09:08)
[2023-12-22] MEDS: NOVOLOG FLEXPEN-MODERATE RESISTANCE 1 UNITS SC (09:08)
[2023-12-22] MEDS: GLUCOPHAGE 500 MG PO ×3 (09:08→22:23)
[2023-12-22] MEDS: NEURONTIN 600 MG PO ×3 (09:08→22:22)
[2023-12-22] MEDS: PROTONIX 40 MG PO (09:09)
[2023-12-22] MEDS: COLACE 100 MG PO (09:09)
[2023-12-22] MEDS: COREG 3.125 MG PO ×2 (09:09→20:43)
[2023-12-22] MEDS: ACTOS 45 MG PO (09:09)
[2023-12-22] MEDS: ASPIRIN 325 MG PO (09:09)
[2023-12-22] MEDS: DEMADEX 20 MG PO (09:09)
[2023-12-22] MEDS: MIRALAX 17 GRAMS PO (09:10)
--- NOTE | 2023-12-22 10:53 | W.PN.HOSP.TC ---
Addendum entered and electronically signed by Miguel Ángel Mariscal MD 12/23/23 09:57:
General: No Apparent Distress
HEENT: Normocephalic and Atraumatic
Respiratory: Negative Wheezes
Cardiac: Regular Rhythm and S1/S2
Musculoskeletal: Other (RUE sling and RLE surgical dressing)
Neuro: AO x 3
Original Note:
Today's Communication/Plan
-
monitor vitals
see plan
hold losartan
check BMP again
monitor urine output
dc planning
Assessment / Plan
Assessment / Plan
Assessment:
Fracture of distal tibia/fibula and proximal fibula
-Tylenol, Dilaudid for pain
-Ortho following; given unstable nature of the fracture pattern, displacement; s/p OR 12/15 for right lower extremity hardware removal, fracture reduction and intramedullary nail fixation. PT/OT rec acute vs SNF
- EKG with sinus tach
- TTWB RLE in boot, on walker. sling RUE
- PT/OT rec acute vs SNF
- Ice/elevation
- Dressings to remain RLE/RUE
- ASA 325mg daily x 4 weeks for DVT ppx
- Outpatient ortho follow up
Fall last evening onto R ribs
- Rib xrays negative
- pain control
atelectasis - continue IS
Acute on chronic anemia, anemia likely secondary to hemodilution and acute blood loss anemia given fracture and surgery
- hemoglobin relatively stable; continue to monitor
Recent Right shoulder surgery 12/13
- continue Sling
- Outpatient ortho follow up
PAVAN
recheck later today
monitor
hold losartan
History of right ankle fracture status post ORIF in September
CAD status post CABG about 13 years ago
- continue ASA
History of CHF; suspect diastolic
- Continue Coreg
- Continue torsemide
Constipation
- on Laxatives
s/p mag citrate; now resolved
Thrombocytopenia
- monitor
Mild hyponatremia
- monitor
Essential hypertension
- hold losartan
cw coreg
Type 2 diabetes, uncontrolled
A1c 7.4
- increase Lantus; increase mealtime insulin
- continue Glimepiride/Metformin/Pioglitazone
- Insulin sliding scale
- diet: patient admits to eating outside foods, probably higher carb content. D/w with him to eat only hospital food
Diabetic neuropathy
- continue gabapentin
Hyperlipidemia
- continue statin
Chronic opioid dependence
Anxiety/depression
- continue amitriptyline
DVT ppx: ASA per Ortho
Code: Full
Anticipated Discharge: Within 24 hours
Subjective/Interval History
-
Date of Service: December 22, 2023
has pain
Objective Data
-
Labs:
Laboratory Results
12/22/23 12/22/23
05:33 11:00
WBC 9.2
Hgb 9.8 L
Hct 30.2 L
Plt Count 216
Sodium 135 Pending
Potassium 3.9 Pending
Chloride 99 Pending
Carbon Dioxide 25 Pending
BUN 37 H Pending
Creatinine 1.4 H Pending
Glucose 126 H Pending
Calcium 9.5 Pending
Vital Signs:
Vital Signs
Temp Pulse Resp BP Pulse Ox
98.2 F 89 18 141/68 94
12/22/23 07:30 12/22/23 07:30 12/22/23 07:30 12/22/23 07:30 12/22/23 07:30
I&O
12/21/23 12/22/23 12/23/23
06:59 06:59 06:59
Intake Total 2520 / 2520 1680 / 1680
Output Total 1695 / 1695 2525 / 2525
Balance 825 / 825 -845 / -845
[2023-12-22 11:46] LABS: Glucose - Point of Care 141 mg/dl (70-99)
[2023-12-22] MEDS: NOVOLOG FLEXPEN-MODERATE RESISTANCE SC ×2 (12:10→18:32)
[2023-12-22 13:00] LABS: Blood Urea Nitrogen 35 mg/dl (9-20); Calcium 9.2 mg/dl (8.4-10.2); Carbon Dioxide 29 mmol/L (22-30); Chloride 96 mmol/L (98-107); Estimated Creatinine Clearance 59 ml/min; Glucose 133 mg/dl (70-99); Potassium 4.3 mmol/L (3.5-5.1); Sodium 132 mmol/L (135-145); eGFR 52.41
--- NOTE | 2023-12-22 13:24 | CM ---
Addendum entered by Angelika Donaldson RN 12/22/23 16:18:
IMM signed and placed on chart.
Original Note:
Reviewed the chart notes. Per attending, not ready today for discharge, possibly tomorrow. CM continues to be available to patient/family and is monitoring medical plan for needs at discharge.
Plan: Discharge to SNF when medically stable, hopefully [facility] if bed remains open.
[2023-12-22 15:25] VITALS: BP 115/61
[2023-12-22 17:38] LABS: Glucose - Point of Care 100 mg/dl (70-99)
[2023-12-22] MEDS: COLACE PO (20:44)
[2023-12-22 22:14] LABS: Glucose - Point of Care 142 mg/dl (70-99)
[2023-12-22] MEDS: CRESTOR 20 MG PO (22:21)
[2023-12-22] MEDS: ELAVIL 25 MG PO (22:21)
[2023-12-22] MEDS: LANTUS 0.179999999999999993 UNITS SC (22:23)
[2023-12-22 22:53] VITALS: BP 126/79
[2023-12-23 05:52] LABS: % Basophils 0.4 % (0-2); % Eosinophils 5.2 % (0-6); % Immature Granulocytes 3.6 % (0-0.5); % Lymphocytes 27.7 % (20.5-51.1); % Neutrophils 50.1 % (42.2-75.2); Absolute Eosinophils 0.4 10^3/uL (0-0.7); Absolute Immature Granulocytes 0.3 10^3/uL (0-0.05); Absolute Lymphocytes 2.2 10^3/uL (1.2-3.4); Absolute Neutrophils 3.9 10^3/uL (1.4-6.5); Hematocrit 28.5 % (39.0-52.0); Hemoglobin 9.6 g/dL (13.0-18.0); Mean Corp Hgb Conc. 33.7 g/dL (33.0-37.0); Mean Corpuscular Hgb 30.4 pg (27.0-31.0); Mean Corpuscular Volume 90.2 fL (80.0-94.0); Mean Platelet Volume 10.5 fL (7.4-10.4); Nucleated Red Blood Cells % 0 % (-); Platelet Count 226 10^3/uL (130-400); Red Blood Cell Count 3.16 10^6/uL (4.70-6.10); Red Cell Dist. Width 12.9 % (11.5-14.5); White Blood Cell Count 7.8 10^3/uL (4.8-10.8)
[2023-12-23 06:00] VITALS: BMI 28.2
--- NOTE | 2023-12-23 06:31 | PTCARENOTE ---
Weighed pt in bed, 25lb discrepancy noted. Will pass along in report and have pt reweighed on dayshift.
[2023-12-23 07:05] LABS: Blood Urea Nitrogen 40 mg/dl (9-20); Calcium 9.5 mg/dl (8.4-10.2); Carbon Dioxide 26 mmol/L (22-30); Chloride 98 mmol/L (98-107); Estimated Creatinine Clearance 55 ml/min; Glucose 103 mg/dl (70-99); Potassium 4.1 mmol/L (3.5-5.1); Sodium 132 mmol/L (135-145); eGFR 57.29
[2023-12-23 07:45] VITALS: BP 138/67
[2023-12-23 08:47] LABS: Glucose - Point of Care 117 mg/dl (70-99)
[2023-12-23] MEDS: NOVOLOG FLEXPEN-MODERATE RESISTANCE SC (08:51)
[2023-12-23] MEDS: PROTONIX 40 MG PO (08:53)
[2023-12-23] MEDS: NEURONTIN 600 MG PO (08:53)
[2023-12-23] MEDS: COREG 3.125 MG PO (08:53)
[2023-12-23] MEDS: COLACE 100 MG PO (08:53)
[2023-12-23] MEDS: AMARYL 4 MG PO (08:53)
[2023-12-23] MEDS: ACTOS 45 MG PO (08:53)
[2023-12-23] MEDS: ASPIRIN 325 MG PO (08:53)
[2023-12-23] MEDS: DEMADEX 20 MG PO (08:53)
[2023-12-23] MEDS: GLUCOPHAGE 500 MG PO (08:53)
[2023-12-23] MEDS: MIRALAX 17 GRAMS PO (08:54)
[2023-12-23] MEDS: NOVOLOG FLEXPEN 8 UNITS SC (08:54)
--- NOTE | 2023-12-23 09:54 | W.PN.HOSP.TC ---
Today's Communication/Plan
-
Monitor vital signs see plan
Continue with aspirin
Discharge today to rehab
Monitor creatinine
Time of discharge 38 minutes
Assessment / Plan
Assessment / Plan
Assessment:
Fracture of distal tibia/fibula and proximal fibula
-Tylenol, Dilaudid for pain
-Ortho following; given unstable nature of the fracture pattern, displacement; s/p OR 12/15 for right lower extremity hardware removal, fracture reduction and intramedullary nail fixation. PT/OT rec acute vs SNF
- EKG with sinus tach
- TTWB RLE in boot, on walker. sling RUE
- PT/OT rec acute vs SNF
- Ice/elevation
- Dressings to remain RLE/RUE
- ASA 325mg daily x 4 weeks for DVT ppx
- Outpatient ortho follow up
Fall last evening onto R ribs
- Rib xrays negative
- pain control
atelectasis - continue IS
Acute on chronic anemia, anemia likely secondary to hemodilution and acute blood loss anemia given fracture and surgery
- hemoglobin relatively stable; continue to monitor
Recent Right shoulder surgery 12/13
- continue Sling
- Outpatient ortho follow up
PAVAN
Improving
monitor
hold losartan
History of right ankle fracture status post ORIF in September
CAD status post CABG about 13 years ago
- continue ASA
History of CHF; suspect diastolic
- Continue Coreg
- Continue torsemide
Constipation
- on Laxatives
s/p mag citrate; now resolved
Thrombocytopenia
- monitor
Mild hyponatremia
- monitor
Essential hypertension
- hold losartan
cw coreg
Type 2 diabetes, uncontrolled
A1c 7.4
- increase Lantus; increase mealtime insulin
- continue Glimepiride/Metformin/Pioglitazone
- Insulin sliding scale
- diet: patient admits to eating outside foods, probably higher carb content. D/w with him to eat only hospital food
Diabetic neuropathy
- continue gabapentin
Hyperlipidemia
- continue statin
Chronic opioid dependence
Anxiety/depression
- continue amitriptyline
DVT ppx: ASA per Ortho
Code: Full
General: No Apparent Distress
HEENT: Normocephalic and Atraumatic
Respiratory: Negative Wheezes
Cardiac: Regular Rhythm and S1/S2
GI: Soft
Genito-urinary: No Costovertebral Tender
Musculoskeletal: Other (RUE sling and RLE surgical dressing)
Neuro: AO x 3
Psych: Calm
Anticipated Discharge: Today
Subjective/Interval History
-
Date of Service: December 23, 2023
Mild pain
Objective Data
-
Labs:
Laboratory Results
12/23/23
05:30
WBC 7.8
Hgb 9.6 L
Hct 28.5 L
Plt Count 226
Sodium 132 L
Potassium 4.1
Chloride 98
Carbon Dioxide 26
BUN 40 H
Creatinine 1.3
Glucose 103 H
Calcium 9.5
Vital Signs:
Vital Signs
Temp Pulse Resp BP Pulse Ox
98.1 F 87 18 138/67 93
12/23/23 07:45 12/23/23 07:45 12/23/23 07:45 12/23/23 07:45 12/23/23 07:45
I&O
12/22/23 12/23/23 12/24/23
06:59 06:59 06:59
Intake Total 1680 / 1680 1800 / 1800
Output Total 2525 / 2525 2550 / 2550
Balance -845 / -845 -750 / -750
--- NOTE | 2023-12-23 09:59 | W.DCSUMMARY ---
Discharge Summary
Discharge Data
Date of Admission: 12/15/23
Date of Discharge: 12/23/23
-
Pending Results: No
Hospital Course
73-year-old male with past medical history of recent right shoulder surgery, CAD, CHF, essential hypertension, type 2 diabetes mellitus, diabetic neuropathy, hyperlipidemia, chronic opioid dependence, anxiety/depression came to the hospital after a
fall with distal tibia/fibula and proximal fibula fracture. Patient was seen by orthopedics and was taken to the OR for right lower extremity hardware removal, fracture reduction and intramedullary nail fixation. Patient was then evaluated by
physical therapy recommended SNF. For DVT prophylaxis he was put on full dose aspirin. On this hospitalization his sugars were uncontrolled so he was started on mealtime insulin along with his Lantus. He also developed acute kidney injury which
over time was improving. Once his symptoms were improving, he was then discharged to SNF with instructions to follow-up with all his physicians outpatient.
Discharge Plan
-
Patient Disposition: Detention/SNF
Discharge Diagnosis/Procedures: Fracture of distal tibia/fibula and proximal fibula status post right lower extremity hardware removal, fracture reduction and intra medullary nail fixation
Atelectasis
Acute on chronic anemia
Recent right shoulder surgery
Acute kidney injury
Diabetes mellitus
Diet: Diabetic, Carb Controlled
Activity: Other activity
Additional Activity: TTWB RLE in boot, on walker. sling RUE
Driving Restrictions: No driving
Bathing Restrictions: None
Other Services: PT and OT
Activity Restrictions/Additional Instructions:
Wound Care Instructions Apply Betadine to scabbed 2nd toe daily. See [facility] for nail care! Dr. Ha is a [facility] in your area [phone].
TTWB RLE in boot, on walker. sling RUE
- PT/OT
- Ice/elevation
- Dressings to remain RLE/RUE
- ASA 325mg daily x 4 weeks for DVT ppx
- Outpatient ortho follow up
Referrals:
Alma Scott MD [Family Provider] - in less than 1 week
Roland Mccullough MD [Active] - in two to three weeks
Prescriptions:
New
docusate sodium 100 mg Capsule
100 mg PO BID Qty: 0 0RF
bisacodyl 10 mg Suppository
10 mg WA DAILYPRN PRN (Reason: constipation) Qty: 0 0RF
polyethylene glycol 3350 [HealthyLax] 17 gram Powder In Packet
17 g PO DAILY Qty: 0 0RF
acetaminophen 325 mg Tablet
650 mg PO Q4HPRN PRN (Reason: mild pain/CURTIS/temp> 100.4F) Qty: 0 0RF
oxycodone 5 mg Tablet
5 mg PO Q4HPRN PRN (Reason: mild to moderate pain) Qty: 12 0RF
insulin aspart U-100 100 unit/mL (3 mL) Insulin Pen
8 unit SC AC Qty: 0 0RF
oxycodone 10 mg Tablet
10 mg PO Q4HPRN PRN (Reason: severe pain) Qty: 12 0RF
Continued
metformin 500 MG tablet
500 mg PO TID
torsemide 20 MG tablet
20 mg PO DAILY
pioglitazone 45 MG tablet
45 mg PO DAILY
omeprazole 40 MG capsule,delayed release(DR/EC)
40 mg PO DAILY
amitriptyline 25 MG tablet
25 mg PO HS
glimepiride 4 MG tablet
4 mg PO DAILY
losartan 25 MG tablet
25 mg PO DAILY
rosuvastatin 20 MG tablet
20 mg PO HS
albuterol sulfate 90 mcg/actuation Hfa Aerosol Inhaler
1 puff INHALATION R TIDPRN PRN (Reason: SOB)
aspirin 325 mg Tablet
325 mg PO DAILY Qty: 1 0RF
gabapentin 600 mg Tablet
600 mg PO TID
carvedilol 3.125 mg Tablet
3.125 mg PO Q12H
Unknown Vitamins/Supplements
1 dose PO DAILY
Patient Comments:
12/15/2023, [facility] vitamins and supplements; pt. does not know the names of the vitamins/supplements that he takes but takes them all in the morning. Pt. held off taking for a week prior to his surgery.
Changed
insulin glargine [Lantus Solostar U-100 Insulin] 100 unit/mL (3 mL) insulin pen
18 unit SC HS Qty: 0 0RF
Discontinued
oxycodone-acetaminophen 5-325 mg tablet
0.5 tab PO Q4HPRN PRN (Reason: severe pain)
Excedrin Extra Strength 250-250-65 mg Tablet
1 tab PO BID
Patient Comments:
12/15/2023, Extra Strength Pain Reliever.
Discharge Orders:
Discharge Patient (As Directed); Ordered 12/23/23
Ordered By: Miguel Ángel Mariscal
Discharge Date and Time
Discharge Date/Time: 12/23/23 11:46
Print Language: OCCITAN
--- NOTE | 2023-12-23 10:12 | CM ---
Reviewed the chart notes. Patient for discharge today to [facility]. CM continues to be available to patient/family and is monitoring medical plan for needs at discharge.
Plan: Discharge to [facility] today.
Call report to: [phone]
Fax report to: [phone]
Medical and transport forms on chart.
[2023-12-23 11:25] VITALS: BP 117/64
== END 2023-12-23 11:46 | DRG 493 ==
LOC: 2 SOUTH 21:24
PROVIDERS: Clinical Nurse Specialist Family Health; Internal Medicine; ADMITTING PHYSICIAN Hospitalist; ATTENDING PHYSICIAN Internal Medicine; CONSULT PHYSICIAN Orthopaedic Surgery; EMERGENCY PHYSICIAN Emergency Medicine; FAMILY PHYSICIAN Family Medicine
PROC: 0QPG04Z Removal of Internal Fixation Device from Right Tibia, Open Approach (ICD-10-PCS; 2023-12-16)
PROC: 0QSG06Z Reposition Right Tibia with Intramedullary Internal Fixation Device, Open Approach (ICD-10-PCS; 2023-12-16)
PROC: 0QSJ04Z Reposition Right Fibula with Internal Fixation Device, Open Approach (ICD-10-PCS; 2023-12-16)
DX: S82.491A Other fracture of shaft of right fibula, initial encounter for closed fracture (principal); D62 Acute posthemorrhagic anemia; I50.32 Chronic diastolic (congestive) heart failure; N17.9 Acute kidney failure, unspecified; F11.20 Opioid dependence, uncomplicated; J98.11 Atelectasis; S82.391A Other fracture of lower end of right tibia, initial encounter for closed fracture; W01.0XXA Fall on same level from slipping, tripping and stumbling without subsequent striking against object, initial encounter; I25.10 Atherosclerotic heart disease of native coronary artery without angina pectoris; I11.0 Hypertensive heart disease with heart failure; E11.40 Type 2 diabetes mellitus with diabetic neuropathy, unspecified; D69.6 Thrombocytopenia, unspecified; J45.909 Unspecified asthma, uncomplicated
CPT/HCPCS: 29505; 71101; 73590; 73600; 73610; 76000; 80048; 80053; 82947; 82962; 83036; 85014; 85018; 85025; 85027; 93005; 97110; 97163; 97167; 97530; 97535; 99285